=== PATIENT | female | born 1940 | race Caucasian/White ===

== ENCOUNTER 2018-01-07 17:15 | Inpatient (IN) | payer MEDICARE, BC ==
[2018-01-07] MEDS ORDERED: MORPHINE SULFATE 10 MG/ML INJ IV ONE (17:30)
--- NOTE | 2018-01-07 17:32 | ER Document Report ---
ED Fall - General Chief Complaint: Fall Stated Complaint: FALL/ARM INJURY Time Seen by Provider: 01/07/18 17:26 Mode of Arrival: Stretcher Information source: Patient - HPI Patient complains to provider of: Trip and fall Occurred: Just prior to arrival Where: Outdoors Context: Tripped Associated symptoms: None Location of injury/pain: Elbow, Face, Hand, Head Quality of pain: Achy Severity: Severe Pain Level: 5 Notes: Patient is a 77-year-old female brought to the by EMS after trip and fall while she was trying to get into her vehicle, her states he was getting into the local intermodal truck driver side while patient was getting into the passenger side and then when she did not get and he walked around to find her on the ground, patient denies any symptoms prior to the fall, she is not quite sure how she fell but she denies any syncope or loss of consciousness, no chest pain, no dizziness or lightheadedness, she does have abrasions and facial ecchymosis as well as the pain to the left elbow and her left thumb appears to be dislocated - Related data Allergies/Adverse Reactions: belladonna alkaloids Allergy (Verified 01/07/18 17:34) carbinoxamine [From Rondec] Allergy (Verified 01/07/18 17:34) morphine Allergy (Verified 01/07/18 17:34) Penicillins Allergy (Verified 01/07/18 17:34) pseudoephedrine [From Rondec] Allergy (Verified 01/07/18 17:34) Past Medical History - General Information source: Patient - Social History Smoking Status: Never Smoker Family History: Reviewed & Not Pertinent Review of Systems - Review of Systems Constitutional: No symptoms reported EENT: No symptoms reported Cardiovascular: No symptoms reported Respiratory: No symptoms reported Gastrointestinal: No symptoms reported Genitourinary: No symptoms reported Female Genitourinary: No symptoms reported Musculoskeletal: See HPI Skin: See HPI Hematologic/Lymphatic: No symptoms reported Neurological/Psychological: No symptoms reported -: Yes All other systems reviewed and negative Physical Exam - Vital signs Interpretation: Normal - General General appearance: Alert In distress: None - HEENT Head: Normocephalic, Abrasions, Ecchymosis, Open wounds, Tenderness, Other - Left periorbital ecchymosis, several abrasions on the left forehead, the left maxilla and the nasal bridge, as well as the upper lip, patient also is a 1.5 cm laceration in the left lateral inferior periorbital area, extraocular motions are intact, no hyphema or other signs of orbital injury Eyes: Normal Conjunctiva: Normal Extraocular movements intact: Yes Eyelashes: Normal Pupils: PERRL Ears: Normal External canal: Normal Nasal: Swelling - Ecchymosis, 1 cm abrasion to the nasal bridge Mouth/Lips: Other - Abrasion to upper lip Mucous membranes: Normal Pharynx: Normal Neck: Normal - Respiratory Respiratory status: No respiratory distress Chest status: Nontender Breath sounds: Normal Chest palpation: Normal - Cardiovascular Rhythm: Regular Heart sounds: Normal auscultation Murmur: No - Abdominal Inspection: Normal Distension: No distension Bowel sounds: Normal Tenderness: Nontender Organomegaly: No organomegaly - Back Back: Normal, Nontender - Extremities General lower extremity: Normal inspection, Nontender, Normal color, Normal ROM , Normal temperature, Normal weight bearing. No: Damian's sign Elbow: Tender, Deformity, Limited ROM, Other - 2+ radial pulses, distal sensation and motor is intact Forearm: Normal Wrist: Normal Hand: Other - Thumb deformity with stuck in abducted position, ecchymosis at the base of the thumb - Neurological Neuro grossly intact: Yes Cognition: Normal Orientation: AAOx4 [place] Coma Scale Eye Opening: Spontaneous Laila Coma Scale Verbal: Oriented Laila Coma Scale Motor: Obeys Commands [place] Coma Scale Total: 15 Speech: Normal Motor strength normal: LUE, RUE, LLE, RLE Sensory: Normal - Psychological Associated symptoms: Normal affect, Normal mood - Skin Skin Temperature: Warm Skin Moisture: Dry Skin Color: Normal Course - Re-evaluation Re-evalutation: 01/07/18 18:59 Patient discussed with on-call orthopedics, Dr. Conti who requested a CT scan of the elbow, recommend admit patient for likely surgical repair Patient discussed with Dr. Gonzalez who will admit patient for further evaluation and treatment Plan discussed with patient at bedside who is in agreement as well 01/07/18 23:59 Patient did have a left thumb dislocation on examination, imaging did not translate very well to show this, however an intra-articular injection was performed and then was reduced, patient was placed in a long-arm posterior splint as well as a thumb spica splint, facial abrasions were cleaned and bacitracin was placed on them, facial laceration was repaired using sutures, see procedure note, patient admitted to Dr. Gonzalez for further evaluation and treatment, orthopedics consulted as well - Laboratory Result Diagrams: 01/07/18 21:32 01/07/18 21:32 - Diagnostic Test Radiology reviewed: Image reviewed, Reports reviewed Procedures - Immobilization Left Arm Time completed: 20:43 Pre-Proc Neuro Vasc Exam: Normal Immobilizer type: Thumb spica, Short Arm Posterior Performed by: PCT Post-Proc Neuro Vasc Exam: Normal Alignment checked and good: Yes - Joint Reduction/Fracture Care Left Thumb Time completed: 20:42 Consent obtained: Yes Conscious sedation: No Pre-procedure NV exam: Yes Post-procedure NV exam: Yes Post-reduction x-ray: Joint reduced Reduction attempts: 1 Complications: No - Laceration/Wound Repair Left Face Time completed: 20:42 Wound length (cm): 1.5 Wound's Depth, Shape: Linear, Contused tissue Laceration pre-procedure: Sterile PPE donned, Sterile drapes applied, Shur- Clens applied Anesthetic type: 1% Lidocaine w/epi Volume Anesthetic (mLs): 4 Wound explored: Clean Irrigated w/ Saline (mLs): 400 Wound Repaired With: Sutures Suture Size/Type: 5:0, Ethilon Number of Sutures: 3 Layer Closure?: No Post-procedure NV exam normal: Yes Complications: No Discharge - Discharge Clinical Impression: Elbow fracture, left, Facial laceration, Head injury, Thumb dislocation Condition: Stable Disposition: ADMITTED INPATIENT Admitting Provider: Lisa Unit Admitted: Telemetry
[2018-01-07] MEDS ORDERED: HYDROMORPHONE HCL INJ/PF 2 MG/ML AMPULE IV ONE (17:38)
--- NOTE | 2018-01-07 18:19 | RADIOLOGY REPORT (SQ) ---
EXAM DESCRIPTION: CT HEAD WITHOUT COMPLETED DATE/TIME: 01/07/2018 5:54 pm REASON FOR STUDY: injury COMPARISON: None. TECHNIQUE: Axial images acquired through the brain without intravenous contrast. Images reviewed wi th bone, brain and subdural windows. Additional sagittal and coronal reconstructions were generated. Images stored on PACS. All CT scanners at this facility use dose modulation, iterative reconstruction, and/or weight based d osing when appropriate to reduce radiation dose to as low as reasonably achievable (ALARA). [facility]: Dose Right [facility]: CareDose [facility]: Dose Right [facility]: Teradose 4D [facility]: [employer] RADIATION DOSE: CT Rad equipment meets quality standard of care and radiation dose reduction techniq ues were employed. CTDIvol: 53.2 mGy. DLP: 964 mGy-cm. mGy. LIMITATIONS: None. FINDINGS: VENTRICLES: Normal size and contour. CEREBRUM: No masses. No hemorrhage. No midline shift. No evidence for acute infarction. Normal gra y/white matter differentiation. No areas of low density in the white matter. CEREBELLUM: No masses. No hemorrhage. No alteration of density. No evidence for acute infarction. EXTRAAXIAL SPACES: No fluid collections. No masses. ORBITS AND GLOBE: No intra- or extraconal masses. Normal contour of globe without masses. CALVARIUM: No fracture. PARANASAL SINUSES: No fluid or mucosal thickening. SOFT TISSUES: No mass or hematoma. OTHER: No other significant finding. IMPRESSION: NORMAL BRAIN CT WITHOUT CONTRAST. EVIDENCE OF ACUTE STROKE: NO. COMMENT: Quality ID # [id number]: Final reports with documentation of one or more dose reduction techniques (e.g., Automated exposure control, adjustment of the mA and/or kV according to patient size, use of iterative reconstruction technique) TECHNICAL DOCUMENTATION: JOB ID: [id number] [employer]- All Rights Reserved Reading location - IP/workstation name: [email or web address]
--- NOTE | 2018-01-07 18:21 | RADIOLOGY REPORT (SQ) ---
EXAM DESCRIPTION: CT FACIAL AREA WITHOUT COMPLETED DATE/TIME: 01/07/2018 5:54 pm REASON FOR STUDY: fall COMPARISON: None. TECHNIQUE: Noncontrasted images through the facial bones and orbits windowed for bone and soft tissu e. Additional coronal and sagittal reconstructed images reviewed. All images stored on PACS. All CT scanners at this facility use dose modulation, iterative reconstruction, and/or weight based d osing when appropriate to reduce radiation dose to as low as reasonably achievable (ALARA). [facility]: Dose Right [facility]: CareDose [facility]: Dose Right [facility]: Teradose 4D [facility]: [employer] RADIATION DOSE: CT Rad equipment meets quality standard of care and radiation dose reduction techniq ues were employed. CTDIvol: 30.4 mGy. DLP: 513 mGy-cm. mGy. LIMITATIONS: None. FINDINGS: FACIAL BONES: No fracture or bone lesion. ORBITS: Intact. No fracture. Symmetric intact globes and retroorbital soft tissues. PARANASAL SINUSES: Clear. No significant mucosal thickening, mass or fluid. No nasal polyps. Maxill aj sinus outlets are patent. SOFT TISSUES: Soft tissue hematoma overlying the left orbit and extending to the left side of the nos e with soft tissue injury. INFERIOR BRAIN: Limited view. No acute findings. OTHER: No other significant finding. IMPRESSION: SOFT TISSUE INJURY OVERLYING THE LEFT ORBIT AND INVOLVING THE LEFT SIDE OF THE NOSE. NO FRACTURE OR OTHER ACUTE FINDINGS. TECHNICAL DOCUMENTATION: JOB ID: [id number] Quality ID # [id number]: Final reports with documentation of one or more dose reduction techniques (e.g., Au tomated exposure control, adjustment of the mA and/or kV according to patient size, use of iterative reconstruction technique) 2010 [employer]- All Rights Reserved Reading location - IP/workstation name: [email or web address]
--- NOTE | 2018-01-07 18:45 | RADIOLOGY REPORT (SQ) ---
EXAM DESCRIPTION: ELBOW LEFT AP/LATERAL COMPLETED DATE/TIME: 01/07/2018 6:05 pm REASON FOR STUDY: fall COMPARISON: None. NUMBER OF VIEWS: Two views. TECHNIQUE: AP and lateral radiographic images acquired of the left elbow. LIMITATIONS: Limited positioning. FINDINGS: MINERALIZATION: Normal. BONES: Displaced fracture of the distal humerus. Fracture of the radial head. JOINT: No effusion. SOFT TISSUES: No soft tissue swelling. No foreign body. OTHER: No other significant finding. IMPRESSION: DISPLACED FRACTURE OF THE DISTAL HUMERUS. FRACTURE OF THE RADIAL HEAD. TECHNICAL DOCUMENTATION: JOB ID: [id number] [employer]- All Rights Reserved Reading location - IP/workstation name: [email or web address] [id number]
--- NOTE | 2018-01-07 18:46 | RADIOLOGY REPORT (SQ) ---
EXAM DESCRIPTION: HAND LEFT 3 VIEWS COMPLETED DATE/TIME: 01/07/2018 6:05 pm REASON FOR STUDY: fall COMPARISON: None. EXAM PARAMETERS: NUMBER OF VIEWS: Three views. TECHNIQUE: AP, lateral and oblique radiographic images acquired of the left hand. LIMITATIONS: None. FINDINGS: MINERALIZATION: Normal. BONES: No acute fracture or dislocation. Degenerative changes in multiple interphalangeal joints wit h sclerosis and osteophytes. No worrisome bone lesions. JOINTS: No effusions. SOFT TISSUES: No soft tissue swelling. No foreign body. OTHER: No other significant finding. IMPRESSION: DEGENERATIVE CHANGES. NO RADIOGRAPHIC EVIDENCE OF ACUTE INJURY. TECHNICAL DOCUMENTATION: JOB ID: [id number] [employer]- All Rights Reserved Reading location - IP/workstation name: [email or web address]
[2018-01-07] MEDS ORDERED: LIDOCAINE 1%/EPINEPHRINE INJ 20 ML VIAL INJ ONE (18:57)
[2018-01-07] MEDS ORDERED: LIDOCAINE 1% INJ (10 MG/ML) 10 ML MDV INJ ONE (18:57)
--- NOTE | 2018-01-07 19:30 | RADIOLOGY REPORT (SQ) ---
EXAM DESCRIPTION: CT LT UPPER EXTREMITY WITHOUT COMPLETED DATE/TIME: 01/07/2018 7:16 pm REASON FOR STUDY: injury COMPARISON: None. TECHNIQUE: Axial imaging performed through the left elbow with reformatted coronal and sagittal imag ing windowed for bone and soft tissues. Images saved to PACS. 3D IMAGING: Were 3D images as MIP, SSD, or volume rendering performed at the work station? No All CT scanners at this facility use dose modulation, iterative reconstruction, and/or weight based d osing when appropriate to reduce radiation dose to as low as reasonably achievable (ALARA). [facility]: Dose Right [facility]: CareDose [facility]: Dose Right [facility]: Teradose 4D [facility]: [employer] LIMITATIONS: None. RADIATION DOSE: CT Rad equipment meets quality standard of care and radiation dose reduction techniq ues were employed. CTDIvol: 2.6 mGy. DLP: 58 mGy-cm. mGy. FINDINGS: SOFT TISSUES: No obvious swelling or foreign body. BONES: There is a comminuted supracondylar fracture of the distal humerus. There is lateral displace ment of the humerus by about 18 mm. MINERALIZATION: Normal. OTHER: No other significant finding. IMPRESSION: Supracondylar fracture of the distal humerus as described. 3D images can be created nee [employer]. TECHNICAL DOCUMENTATION: JOB ID: [id number] Quality ID # [id number]: Final reports with documentation of one or more dose reduction techniques (e.g., Au tomated exposure control, adjustment of the mA and/or kV according to patient size, use of iterative reconstruction technique) 2010 [employer]- All Rights Reserved Reading location - IP/workstation name: [email or web address]
[2018-01-07] MEDS ORDERED: ONDANSETRON HCL INJ/PF 4 MG/2 ML SDV IV ONE (19:40)
--- NOTE | 2018-01-07 21:50 | RADIOLOGY REPORT (SQ) ---
PROCEDURE: X-RAY OF THE LEFT HAND THREE VIEWS CLINICAL HISTORY: thumb reduction INDICATION: Same as above COMPARISON: 01/07/2018, done at 5:59 PM . TECHNIQUE: The study was done on 01/07/2018 at 8:58 PM Three Views of the left hand were done. FINDINGS: There is no evidence of acute fractures or dislocation involving the bones of the left wrist and hand. The soft tissues are radiographically unremarkable. Extensive degenerative changes are again seen in the interphalangeal joint of the left thumb and the DIP joints of the second, third and fifth digits If the wrist pain persists, repeat films can be done in 7-10 days interval to rule out occult fractures. Alternatively an MRI of the wrist can be obtained. IMPRESSION: There are no acute bony findings involving the left hand Extensive degenerative changes are again seen in the interphalangeal joint of the left thumb and the DIP joints of the second, third and fifth digits
[2018-01-07 21:55] LABS: ANION GAP 15 (5-19); BLOOD UREA NITROGEN 18 mg/dL (7-20); CALCIUM 9.5 mg/dL (8.4-10.2); CARBON DIOXIDE 26 mmol/L (22-30); CHLORIDE 100 mmol/L (98-107); GLUCOSE 175 mg/dL (75-110); POTASSIUM 4.2 mmol/L (3.6-5.0); SODIUM 140.7 mmol/L (137-145)
[2018-01-07 21:58] LABS: HEMATOCRIT 36.6 % (36.0-47.0); HEMOGLOBIN 12.3 g/dL (12.0-15.5); MEAN CORPUSCULAR HEMOGLOBIN 30.2 pg (27.0-33.4); MEAN CORPUSCULAR HGB CONC 33.6 g/dL (32.0-36.0); MEAN CORPUSCULAR VOLUME 90 fl (80-97); PLATELET COUNT 355 10^3/uL (150-450); RED BLOOD COUNT 4.06 10^6/uL (3.72-5.28); RED CELL DISTRIBUTION WIDTH 13.3 % (11.5-14.0); WHITE BLOOD COUNT 19.6 10^3/uL (4.0-10.5)
[2018-01-07 21:59] LABS: INTERNATIONAL RATION (INR) 0.91; PROTHROMBIN TIME 12.7 SEC (11.4-15.4)
[2018-01-07 22:00] LABS: PARTIAL THROMBOPLASTIN TIME 25.5 SEC (23.5-35.8)
[2018-01-07 22:16] LABS: ABSOLUTE LYMPHOCYTES# (MANUAL) 1.6 10^3/uL (0.5-4.7); ABSOLUTE MONOCYTES # (MANUAL) 0.4 10^3/uL (0.1-1.4); ABSOLUTE NEUTROPHILS# (MANUAL) 17.6 10^3/uL (1.7-8.2); BAND NEUTROPHILS % (MANUAL) 1 % (3-5); BASOPHILS % (MANUAL) 0 % (0-2); EOSINOPHILS % (MANUAL) 0 % (0-6); LYMPHOCYTES % (MANUAL) 8 % (13-45); MONOCYTES % (MANUAL) 2 % (3-13); SEGMENTED NEUTROPHILS % (MAN) 89 % (42-78); TOTAL CELLS COUNTED 100
[2018-01-07 22:23] LABS: POIKILOCYTOSIS SLIGHT
[2018-01-07 22:24] LABS: OVALOCYTES SLIGHT; PLATELET COMMENT ADEQUATE
[2018-01-08] MEDS ORDERED: GLUCAGON,HUMAN RECOMB 1 MG INJ SUBCUT PRN (01:20)
[2018-01-08] MEDS ORDERED: DEXTROSE 40% GEL 15 GM TUBE PO PRN ×3 (01:20→01:31)
[2018-01-08] MEDS ORDERED: DEXTROSE 50%-WATER 25 GM/50 ML DISP.SYRIN IV PRN ×2 (01:20)
[2018-01-08] MEDS ORDERED: HYDROMORPHONE HCL INJ/PF 2 MG/ML AMPULE IV PRN (01:28)
[2018-01-08] MEDS ORDERED: DEXTROSE 50%-WATER SYRINGE 12.5 GM/25 ML DOSE IV PRN (01:31)
[2018-01-08] MEDS ORDERED: DEXTROSE 40% GEL 15 GM TUBE X 2 PO PRN (01:31)
[2018-01-08] MEDS ORDERED: GLUCAGON,HUMAN RECOMB 1 MG INJ IM PRN (01:31)
[2018-01-08] MEDS ORDERED: DEXTROSE 50%-WATER SYRINGE 25 GM/50 ML DOSE IV PRN (01:31)
[2018-01-08] MEDS: ONDANSETRON HCL INJ/PF 4 MG/2 ML SDV IV PRN ×2 (03:45→09:14)
[2018-01-08 07:40] LABS: ABSOLUTE BASOPHILS # (AUTO) 0.1 10^3/uL (0.0-0.2); ABSOLUTE LYMPHOCYTES (AUTO) 1.9 10^3/uL (0.5-4.7); ABSOLUTE NEUT (AUTO) 10.8 10^3/uL (1.7-8.2); BASOPHILS % (AUTO) 0.7 % (0-2); HEMATOCRIT 35.8 % (36.0-47.0); HEMOGLOBIN 12.1 g/dL (12.0-15.5); LYMPHOCYTES % (AUTO) 13.8 % (13-45); MEAN CORPUSCULAR HEMOGLOBIN 30.2 pg (27.0-33.4); MEAN CORPUSCULAR HGB CONC 33.6 g/dL (32.0-36.0); MEAN CORPUSCULAR VOLUME 90 fl (80-97); MONOCYTES % (AUTO) 7.2 % (3-13); PLATELET COUNT 352 10^3/uL (150-450); RED CELL DISTRIBUTION WIDTH 13.3 % (11.5-14.0); SEGMENTED NEUTROPHILS % (AUTO) 78.3 % (42-78); TOTAL CELLS COUNTED % (AUTO) 100 %; WHITE BLOOD COUNT 13.9 10^3/uL (4.0-10.5)
--- NOTE | 2018-01-08 07:53 | EKG REPORT ---
SEVERITY:- ABNORMAL ECG - SINUS TACHYCARDIA LEFT AXIS DEVIATION NONSPECIFIC ST-T CHANGES- INFERIOR LEADS : Confirmed by: Olu Maria MD 08-Jan-2018 07:53:05
--- NOTE | 2018-01-08 08:49 | PDOC H&P ---
History of Present Illness Admission Date/PCP: 01/07/18 19:52 JIM JACOBYAnne Marie Patient complains of: Fall and left elbow pain History of Present Illness: JERAMY LOPEZ is a 77 year old female patient known to my practice who was brought to the ED by EMS due to incidental fall while in the parking lot of a local restaurant and attempting to get in her vehicle passenger front seat. Patient claimed that she suddenly found her self on the floor after delivering her oxygen tank to him. She denied any preceding chest pain, palpitation , dizziness or loss of consciousness. She denied headache. Her initial evaluation in the ED revealed significant bilateral periorbital soft tissue injury with ecchymosis, left more than right and left elbow deformity. Her radiographic evaluation revealed displaced left supracondylar fracture of distal humerus as well as periorbital soft tissue injury without acute facial fracture. She was advised hospitalization for further evaluation and management with orthopedic surgical intervention. Her morbidities include Diabetes mellitus type 2, hypertension, hyperlipidemia, and Osteoarthritis. Past Medical History Cardiac Medical History: Reports: Hyperlipidema, Hypertension Endocrine Medical History: Reports: Diabetes Mellitus Type 2 Musculoskeltal Medical History: Reports: Arthritis Past Surgical History Past Surgical History: Reports: Knee Replacement Social History Smoking Status: Never Smoker Family History Family History: Reviewed & Not Pertinent Parental Family History Reviewed: Yes Children Family History Reviewed: Yes Sibling(s) Family History Reviewed.: Yes Medication/Allergy Home Medications: Atorvastatin Calcium [Lipitor 20 mg Tablet] 20 mg PO QHS 01/07/18 Lisinopril [Prinivil 40 mg Tablet] 40 mg PO DAILY 01/07/18 Metformin HCl [Metformin HCl ER] 1,000 mg PO QAM 01/07/18 Metformin HCl [Metformin HCl ER] 500 mg PO QPM 01/07/18 Tolterodine Tartrate [Tolterodine Tartrate ER] 4 mg PO DAILY 01/07/18 Allergies/Adverse Reactions: belladonna alkaloids Allergy (Verified 01/07/18 17:34) carbinoxamine [From Rondec] Allergy (Verified 01/07/18 17:34) morphine Allergy (Verified 01/07/18 17:34) Penicillins Allergy (Verified 01/07/18 17:34) pseudoephedrine [From Rondec] Allergy (Verified 01/07/18 17:34) Review of Systems Constitutional: ABSENT: chills, fever(s), headache(s), weight gain, weight loss Eyes: PRESENT: visual disturbances - correction with glasses Ears: ABSENT: hearing changes Nose, Mouth, and Throat: ABSENT: as per HPI, headache(s), mouth pain, sore throat, vertigo, other Cardiovascular: ABSENT: chest pain, dyspnea on exertion, edema, orthropnea, palpitations Gastrointestinal: ABSENT: abdominal pain, constipation, diarrhea, hematemesis, hematochezia, nausea, vomiting Musculoskeletal: ABSENT: joint swelling Integumentary: ABSENT: rash, wounds Neurological: ABSENT: abnormal gait, abnormal speech, confusion, dizziness, focal weakness, syncope Psychiatric: ABSENT: anxiety, depression, homidical ideation, suicidal ideation Endocrine: ABSENT: cold intolerance, heat intolerance, menstrual abnormalities, polydipsia, polyuria Hematologic/Lymphatic: ABSENT: easy bleeding, easy bruising, lymphadenopathy Allergic/Immunologic: ABSENT: seasonal rhinorrhea Physical Exam Vital Signs: Temp Pulse Resp BP Pulse Ox 97.6 F 128 H 20 154/79 H 96 01/08/18 03:57 01/08/18 03:57 01/08/18 00:37 01/08/18 03:57 01/08/18 03:57 Intake & Output 01/07/18 01/08/18 01/09/18 06:59 06:59 06:59 Intake Total 0 Output Total 200 Balance -200 Weight 69.3 kg General appearance: PRESENT: no acute distress, well-developed, well-nourished Head exam: PRESENT: normocephalic. ABSENT: atraumatic - with bilateral periorbiatl ecchymosis and soft tissue injury and across nose bridge. Eye exam: PRESENT: conjunctiva pink, periorbital swelling - minimal from soft tissue injury, other - left eye lids with difficukty openning. ABSENT: scleral icterus Ear exam: PRESENT: normal external ear exam Mouth exam: PRESENT: moist Neck exam: PRESENT: full ROM. ABSENT: carotid bruit, JVD, lymphadenopathy, thyromegaly Respiratory exam: PRESENT: clear to auscultation cathleen Cardiovascular exam: PRESENT: RRR. ABSENT: diastolic murmur, rubs, systolic murmur Pulses: PRESENT: normal dorsalis pedis pul, +2 pedal pulses bilateral Vascular exam: PRESENT: normal capillary refill. ABSENT: pallor GI/Abdominal exam: PRESENT: normal bowel sounds, soft. ABSENT: distended, guarding, mass, organolmegaly, rebound, tenderness Rectal exam: PRESENT: deferred Extremities exam: PRESENT: tenderness - left elbow region with CAS wrap and external immobilizer. ABSENT: pedal edema Musculoskeletal exam: PRESENT: deformity - left elbow joint, tenderness - left elbow joint Neurological exam: PRESENT: alert, awake, oriented to person, oriented to place , oriented to time, oriented to situation, CN II-XII grossly intact. ABSENT: motor sensory deficit Psychiatric exam: PRESENT: appropriate affect, normal mood. ABSENT: homicidal ideation, suicidal ideation Skin exam: PRESENT: abrasion, other - periorbital ecchymosis left > right, about small laceration injury left upper lip. Results Laboratory Results: 01/08/18 07:08 01/08/18 07:08 01/07/18 01/07/18 01/08/18 21:32 21:32 07:08 WBC 19.6 H 13.9 H RBC 4.06 4.00 Hgb 12.3 12.1 Hct 36.6 35.8 L MCV 90 90 MCH 30.2 30.2 MCHC 33.6 33.6 RDW 13.3 13.3 Plt Count 355 352 Seg Neutrophils % Not Reportable 78.3 H Lymphocytes % Not Reportable 13.8 Monocytes % Not Reportable 7.2 Eosinophils % Not Reportable 0.0 Basophils % Not Reportable 0.7 Absolute Neutrophils Not Reportable 10.8 H Absolute Lymphocytes Not Reportable 1.9 Absolute Monocytes Not Reportable 1.0 Absolute Eosinophils Not Reportable 0.0 Absolute Basophils Not Reportable 0.1 Sodium 140.7 Potassium 4.2 Chloride 100 Carbon Dioxide 26 Anion Gap 15 BUN 18 Creatinine 0.75 Est GFR ( Amer) > 60 Est GFR (Non-Af Amer) > 60 Glucose 175 H Calcium 9.5 01/08/18 07:08 WBC RBC Hgb Hct MCV MCH MCHC RDW Plt Count Seg Neutrophils % Lymphocytes % Monocytes % Eosinophils % Basophils % Absolute Neutrophils Absolute Lymphocytes Absolute Monocytes Absolute Eosinophils Absolute Basophils Sodium Potassium Chloride Carbon Dioxide Anion Gap BUN 17 Creatinine Est GFR ( Amer) Est GFR (Non-Af Amer) Glucose Calcium Impressions: Elbow X-Ray 01/07/18 17:30 IMPRESSION: DISPLACED FRACTURE OF THE DISTAL HUMERUS. FRACTURE OF THE RADIAL HEAD. Facial Bones CT 01/07/18 17:30 IMPRESSION: SOFT TISSUE INJURY OVERLYING THE LEFT ORBIT AND INVOLVING THE LEFT SIDE OF THE NOSE. NO FRACTURE OR OTHER ACUTE FINDINGS. Head CT 01/07/18 17:30 IMPRESSION: NORMAL BRAIN CT WITHOUT CONTRAST. EVIDENCE OF ACUTE STROKE: NO. Upper Extremity CT 01/07/18 18:56 IMPRESSION: Supracondylar fracture of the distal humerus as described. 3D images can be created needed. Hand X-Ray 01/07/18 20:43 IMPRESSION: There are no acute bony findings involving the left hand Extensive degenerative changes are again seen in the interphalangeal joint of the left thumb and the DIP joints of the second, third and fifth digits Assessment & Plan - Diagnosis (1) Fall, accidental Qualifiers: Encounter type: initial encounter Qualified Code(s): W19.XXXA - Unspecified fall, initial encounter Is this a current diagnosis for this admission?: Yes Plan: PT / OT evaluation when she is clinically stable after orthopedic intervention for her left elbow fracture. (2) Elbow fracture, left Qualifiers: Encounter type: initial encounter Fracture type: closed Qualified Code(s) : S42.402A - Unspecified fracture of lower end of left humerus, initial encounter for closed fracture Is this a current diagnosis for this admission?: Yes Plan: Continue external immobilization with pain management. Follow up on orthopedic consultation and recommendation. (3) Periorbital contusion of left eye Qualifiers: Encounter type: initial encounter Qualified Code(s): S05.12XA - Contusion of eyeball and orbital tissues, left eye, initial encounter Is this a current diagnosis for this admission?: Yes Plan: Topical antibiotic application to affected areas. (4) Facial laceration Qualifiers: Encounter type: initial encounter Qualified Code(s): S01.81XA - Laceration without foreign body of other part of head, initial encounter Is this a current diagnosis for this admission?: Yes Plan: Topical antibiotic application to affected areas. (5) HTN (hypertension) Qualifiers: Hypertension type: essential hypertension Qualified Code(s): I10 - Essential (primary) hypertension Is this a current diagnosis for this admission?: Yes Plan: Continue pre-admission medication management. (6) HLD (hyperlipidemia) Qualifiers: Hyperlipidemia type: unspecified Qualified Code(s): E78.5 - Hyperlipidemia , unspecified Is this a current diagnosis for this admission?: Yes Plan: Continue pre-admission medication management. (7) Diabetes mellitus type 2 in nonobese Is this a current diagnosis for this admission?: Yes Plan: Continue pre-admission medication management. (8) Osteoarthritis involving multiple joints on both sides of body Is this a current diagnosis for this admission?: Yes Plan: Continue pre-admission medication management. (9) Urinary incontinence in female Is this a current diagnosis for this admission?: Yes Plan: Continue pre-admission medication management. - Time Time Spent: 50 to 70 Minutes Medications reviewed and adjusted accordingly: Yes Anticipated discharge: Home with Homehealth - Inpatient Certification Based on my medical assessment, after consideration of the patient's comorbidities, presenting symptoms, or acuity I expect that the services needed warrant INPATIENT care.: Yes I certify that my determination is in accordance with my understanding of Medicare's requirements for reasonable and necessary INPATIENT services [42 CFR 412.3e].: Yes Medical Necessity: Need Close Monitoring Due to Risk of Patient Decompensation, Need For IV Fluids, Need For Continuous Telemetry Monitoring, Need for Surgery, Risk of Complication if Not Cared For in Hospital Post Hospital Care: D/C Planning Supervisor Documentation - Plan Summary Plan Summary: See admitting attending physician orders as reflected in the above care plan.
[2018-01-08] MEDS ORDERED: (PENDING PHARMACY ID) (Tolterodine Tartrate [Tolterodine Tartrate Er] 4 MG) PO SCH (10:00)
[2018-01-08 12:23] LABS: ANION GAP 12 (5-19); CALCIUM 9.3 mg/dL (8.4-10.2); CARBON DIOXIDE 27 mmol/L (22-30); CHLORIDE 99 mmol/L (98-107); GLUCOSE 148 mg/dL (75-110); POTASSIUM 4.5 mmol/L (3.6-5.0); SODIUM 137.7 mmol/L (137-145)
[2018-01-08 12:33] LABS: BLOOD UREA NITROGEN 17 mg/dL (7-20)
[2018-01-08] MEDS: ENOXAPARIN SODIUM INJ 40 MG/0.4 ML DISP.SYRIN SUBCUT SCH (12:41)
[2018-01-08] MEDS: TOLTERODINE TARTRATE 1 MG TABLET PO SCH ×2 (12:42→21:13)
[2018-01-08] MEDS: LISINOPRIL 10 MG TABLET PO SCH (12:42)
[2018-01-08] MEDS: LANSOPRAZOLE 30 MG TAB.RAP.DR PO SCH (12:44)
--- NOTE | 2018-01-08 14:29 | PDOC CONSULTATION ---
History of Present Illness Admission Date/PCP: 01/07/18 19:52 JIMISRAEL GO Patient complains of: Left elbow pain History of Present Illness: JERAMY LOPEZ is a 77 year old female who sustained a fall while at [employer] for her interval history. She was walking outside the restaurant when she tripped on the sidewalk falling face forward hitting her head and left arm. Patient was seen at the emergency room demonstrating fractures of her elbow. Patient also sustained dislocation of her thumb MCP joint which was closed reduced and placed in a splint. She states the pain in her thumb is notably improved. She did have numbness and tingling in her thumb mild numbness and tingling in the ring and small finger. States pain is 8/10 with attempted motion. Patient notes history of previous nerve release in her elbow years ago. Past Medical History Cardiac Medical History: Reports: Hyperlipidema, Hypertension Endocrine Medical History: Reports: Diabetes Mellitus Type 2 Musculoskeltal Medical History: Reports: Arthritis Past Surgical History Past Surgical History: Reports: Knee Replacement Social History Smoking Status: Never Smoker Family History Family History: Reviewed & Not Pertinent Parental Family History Reviewed: No Children Family History Reviewed: No Sibling(s) Family History Reviewed.: No Medication/Allergy Home Medications: Atorvastatin Calcium [Lipitor 20 mg Tablet] 20 mg PO QHS 01/07/18 Lisinopril [Prinivil 40 mg Tablet] 40 mg PO DAILY 01/07/18 Metformin HCl [Metformin HCl ER] 1,000 mg PO QAM 01/07/18 Metformin HCl [Metformin HCl ER] 500 mg PO QPM 01/07/18 Tolterodine Tartrate [Tolterodine Tartrate ER] 4 mg PO DAILY 01/07/18 Allergies/Adverse Reactions: belladonna alkaloids Allergy (Verified 01/07/18 17:34) carbinoxamine [From Rondec] Allergy (Verified 01/07/18 17:34) morphine Allergy (Verified 01/07/18 17:34) Penicillins Allergy (Verified 01/07/18 17:34) pseudoephedrine [From Rondec] Allergy (Verified 01/07/18 17:34) Review of Systems Constitutional: ABSENT: chills, fever(s), headache(s), weight gain, weight loss Eyes: ABSENT: visual disturbances Ears: ABSENT: hearing changes Cardiovascular: ABSENT: chest pain, dyspnea on exertion, edema, orthropnea, palpitations Respiratory: ABSENT: cough, hemoptysis Gastrointestinal: ABSENT: abdominal pain, constipation, diarrhea, hematemesis, hematochezia, nausea, vomiting Genitourinary: ABSENT: dysuria, hematuria Musculoskeletal: PRESENT: as per HPI Integumentary: ABSENT: rash, wounds Neurological: ABSENT: abnormal gait, abnormal speech, confusion, dizziness, focal weakness, syncope Psychiatric: ABSENT: anxiety, depression, homidical ideation, suicidal ideation Endocrine: ABSENT: cold intolerance, heat intolerance, menstrual abnormalities, polydipsia, polyuria Hematologic/Lymphatic: ABSENT: easy bleeding, easy bruising, lymphadenopathy Physical Exam Vital Signs: Temp Pulse Resp BP Pulse Ox 98.2 F 123 H 16 126/84 H 95 01/08/18 07:27 01/08/18 07:27 01/08/18 07:27 01/08/18 07:27 01/08/18 07:27 Intake & Output 01/07/18 01/08/18 01/09/18 06:59 06:59 06:59 Intake Total 0 Output Total 200 Balance -200 Weight 69.3 kg General appearance: PRESENT: no acute distress, well-developed, well-nourished Head exam: PRESENT: normocephalic Eye exam: PRESENT: conjunctiva pink, EOMI, PERRLA, other - Ecchymosis throughout the left orbit and side of the face with notable swelling.. ABSENT: scleral icterus Ear exam: PRESENT: normal external ear exam Mouth exam: PRESENT: moist, tongue midline Teeth exam: PRESENT: other - Chipped tooth Neck exam: PRESENT: full ROM. ABSENT: carotid bruit, JVD, lymphadenopathy, thyromegaly Cardiovascular exam: PRESENT: RRR. ABSENT: diastolic murmur, rubs, systolic murmur Pulses: PRESENT: normal dorsalis pedis pul, +2 pedal pulses bilateral Vascular exam: PRESENT: normal capillary refill GI/Abdominal exam: PRESENT: normal bowel sounds, soft. ABSENT: distended, guarding, mass, organolmegaly, rebound, tenderness Rectal exam: PRESENT: deferred Musculoskeletal exam: PRESENT: other - Left upper extremity: Splint intact. Intact flexion/extension of the IP and MP joints. Hypoesthesia on the ring and small finger. Cap refill less than 2 seconds. No pain with passive stretch. Compartments soft and compressible no sign of compartment syndrome. Neurological exam: PRESENT: alert, awake, oriented to person, oriented to place , oriented to time, oriented to situation, CN II-XII grossly intact. ABSENT: motor sensory deficit Psychiatric exam: PRESENT: appropriate affect, normal mood. ABSENT: homicidal ideation, suicidal ideation Skin exam: PRESENT: dry, intact, warm. ABSENT: cyanosis, rash Results Laboratory Results: 01/08/18 07:08 01/08/18 07:08 01/07/18 01/07/18 01/08/18 21:32 21:32 07:08 WBC 19.6 H 13.9 H RBC 4.06 4.00 Hgb 12.3 12.1 Hct 36.6 35.8 L MCV 90 90 MCH 30.2 30.2 MCHC 33.6 33.6 RDW 13.3 13.3 Plt Count 355 352 Seg Neutrophils % Not Reportable 78.3 H Lymphocytes % Not Reportable 13.8 Monocytes % Not Reportable 7.2 Eosinophils % Not Reportable 0.0 Basophils % Not Reportable 0.7 Absolute Neutrophils Not Reportable 10.8 H Absolute Lymphocytes Not Reportable 1.9 Absolute Monocytes Not Reportable 1.0 Absolute Eosinophils Not Reportable 0.0 Absolute Basophils Not Reportable 0.1 Sodium 140.7 Potassium 4.2 Chloride 100 Carbon Dioxide 26 Anion Gap 15 BUN 18 Creatinine 0.75 Est GFR ( Amer) > 60 Est GFR (Non-Af Amer) > 60 Glucose 175 H Calcium 9.5 01/08/18 01/08/18 07:08 07:08 WBC RBC Hgb Hct MCV MCH MCHC RDW Plt Count Seg Neutrophils % Lymphocytes % Monocytes % Eosinophils % Basophils % Absolute Neutrophils Absolute Lymphocytes Absolute Monocytes Absolute Eosinophils Absolute Basophils Sodium 137.7 Potassium 4.5 Chloride 99 Carbon Dioxide 27 Anion Gap 12 BUN 17 17 Creatinine 0.80 Est GFR ( Amer) > 60 Est GFR (Non-Af Amer) > 60 Glucose 148 H Calcium 9.3 Impressions: Elbow X-Ray 01/07/18 17:30 IMPRESSION: DISPLACED FRACTURE OF THE DISTAL HUMERUS. FRACTURE OF THE RADIAL HEAD. Facial Bones CT 01/07/18 17:30 IMPRESSION: SOFT TISSUE INJURY OVERLYING THE LEFT ORBIT AND INVOLVING THE LEFT SIDE OF THE NOSE. NO FRACTURE OR OTHER ACUTE FINDINGS. Head CT 01/07/18 17:30 IMPRESSION: NORMAL BRAIN CT WITHOUT CONTRAST. EVIDENCE OF ACUTE STROKE: NO. Upper Extremity CT 01/07/18 18:56 IMPRESSION: Supracondylar fracture of the distal humerus as described. 3D images can be created needed. Hand X-Ray 01/07/18 20:43 IMPRESSION: There are no acute bony findings involving the left hand Extensive degenerative changes are again seen in the interphalangeal joint of the left thumb and the DIP joints of the second, third and fifth digits Status: Image reviewed by me - I have reviewed patient's radiographs which demonstrate supracondylar distal humerus fracture no evidence of intra- articular extension. Also evidence of thumb MCP joint dislocation with adequate reduction on secondary films. Assessment & Plan - Diagnosis (1) Closed fracture of left distal humerus Qualifiers: Encounter type: initial encounter Is this a current diagnosis for this admission?: Yes Plan: Patient has sustained a supracondylar left distal humerus fracture there is not apparent intra-articular extension on radiographs. Given the amount of displacement and severity I feel patient will require operative intervention. She is at high risk for postoperative ulnar nerve symptoms given her previous cubital tunnel release at this point I have recommended open reduction to fixation left distal humerus. Risks and benefits have been explained risks including neurovascular wrist, postoperative pain, postoperative stiffness, posttraumatic arthritis, hardware failure, decreased range of motion. Patient and have verbalized understanding consented for the procedure.
--- NOTE | 2018-01-08 15:13 | Physician Advisory Note ---
Physician Advisor ProgressNote .: Pursuant to the plan for [facility], I have reviewed the medical record for this patient. Physician Advisor Statement: 77yo w/underlying DM/HTN/HLD/OA/ur incont came in w/elbow fx after trip/fall. Needing surgical repair. Very tachycardic in 120s. In thumb spica after thumb disloc reduced in ED. Per discussion w/nurse Destini this afternoon, pt was initially kept NPO (w/IVF @100) this AM due to potential for surgery today, but now it looks like surgery will be tomorrow, so they are going to try her w/a diet. However, she has had a lot of nausea so far today, needing prn IV Zofran twice already today. Last VS on chart at present are from 07:27, & showed continued HR 120s. Per nurse, her HR was 99 at 12N, & is running 126 currently on the monitor. (She will try to get the 12N VS entered into [employer].) PT/OT are consulted to see pt after elbow is stabilized w/surgery, but may not safely assess or work w/her until then. Ortho has now documented that pt has high risk for post-op ulnar nerve sx due to prior CTR. *Status: Medicare pt. Having to stay a 2nd MN due to a logistical delay in surgery does not qualify her for Inpt status. Needing elbow surgery, whether today or tomorrow, does not qualify her for INpt status. Persistent tachycardia on day 2 despite IVF, if attending finds it CONCERNING ( not incidental), is a reason for INpt status. Frequent need for PRN IV Zofran (if pt continues to need it; not just 2 doses) can be a reason for Inpt status. Thanks! CK
[2018-01-08] MEDS: ATORVASTATIN CALCIUM 20 MG TABLET PO SCH (21:13)
[2018-01-09] MEDS: NORMAL SALINE 1000 ML 1,000 ML IV PRN ×3 (03:00→21:57)
[2018-01-09] MEDS: LANSOPRAZOLE 30 MG TAB.RAP.DR PO SCH (05:28)
[2018-01-09 05:48] LABS: ABSOLUTE BASOPHILS # (AUTO) 0.1 10^3/uL (0.0-0.2); ABSOLUTE EOSINOPHILS # (AUTO) 0.1 10^3/uL (0.0-0.6); ABSOLUTE LYMPHOCYTES (AUTO) 2.7 10^3/uL (0.5-4.7); ABSOLUTE MONOCYTES (AUTO) 1.4 10^3/uL (0.1-1.4); ABSOLUTE NEUT (AUTO) 8.5 10^3/uL (1.7-8.2); BASOPHILS % (AUTO) 0.5 % (0-2); EOSINOPHILS % (AUTO) 0.8 % (0-6); HEMATOCRIT 36.3 % (36.0-47.0); MEAN CORPUSCULAR HEMOGLOBIN 29.8 pg (27.0-33.4); MEAN CORPUSCULAR HGB CONC 33.1 g/dL (32.0-36.0); MEAN CORPUSCULAR VOLUME 90 fl (80-97); MONOCYTES % (AUTO) 11.4 % (3-13); PLATELET COUNT 339 10^3/uL (150-450); RED BLOOD COUNT 4.03 10^6/uL (3.72-5.28); RED CELL DISTRIBUTION WIDTH 13.1 % (11.5-14.0); SEGMENTED NEUTROPHILS % (AUTO) 66.3 % (42-78); TOTAL CELLS COUNTED % (AUTO) 100 %; WHITE BLOOD COUNT 12.7 10^3/uL (4.0-10.5)
[2018-01-09 06:14] LABS: ANION GAP 11 (5-19); BLOOD UREA NITROGEN 12 mg/dL (7-20); CARBON DIOXIDE 26 mmol/L (22-30); CHLORIDE 103 mmol/L (98-107); GLUCOSE 148 mg/dL (75-110); POTASSIUM 4.5 mmol/L (3.6-5.0); SODIUM 140.2 mmol/L (137-145)
--- NOTE | 2018-01-09 08:42 | PDOC PROGRESS REPORT ---
Subjective Progress Note for:: 01/09/18 Subjective:: Patient reported cotrol of her pain. Facial swelling and ecchymosis resolving ad able to open left eye this morning. Nausea remain a concern. She is scheduled for surgical intervention today. She denied chest pain or difficulty with breathing. No reported fever or chills. Reason For Visit: FRACTURE OF LEFT ELBOW/FACIAL LACERATION Physical Exam Vital Signs: Temp Pulse Resp BP Pulse Ox 98.5 F 113 H 18 152/71 H 95 01/09/18 08:11 01/09/18 08:11 01/09/18 08:11 01/09/18 08:11 01/09/18 08:11 Intake & Output 01/08/18 01/09/18 01/10/18 06:59 06:59 06:59 Intake Total 0 236 Output Total 200 800 Balance -200 -564 Weight 69.3 kg 69.1 kg General appearance: PRESENT: no acute distress, well-developed, well-nourished Head exam: PRESENT: normocephalic. ABSENT: atraumatic - Periorbital facial soft tissue swelling with ecchymosis, left >> right Eye exam: PRESENT: conjunctiva pink - left medial subconjunctival hemorrhage, EOMI, periorbital swelling, PERRLA. ABSENT: scleral icterus Ear exam: PRESENT: normal external ear exam Mouth exam: PRESENT: laceration - upper lip left side, moist Respiratory exam: PRESENT: clear to auscultation cathleen Cardiovascular exam: PRESENT: RRR. ABSENT: diastolic murmur, rubs, systolic murmur Vascular exam: PRESENT: normal capillary refill. ABSENT: pallor GI/Abdominal exam: PRESENT: normal bowel sounds, soft. ABSENT: distended, guarding, mass, organolmegaly, rebound, tenderness Extremities exam: PRESENT: tenderness - reportedaround left elbow region and left thumb and 5th finger. ABSENT: pedal edema Musculoskeletal exam: PRESENT: deformity, tenderness - reportedaround left elbow region and left thumb and 5th finger. External immobilizer and CAS wrap dressing Neurological exam: PRESENT: alert, awake, oriented to person, oriented to place , oriented to time, oriented to situation, CN II-XII grossly intact. ABSENT: motor sensory deficit Psychiatric exam: PRESENT: appropriate affect, normal mood. ABSENT: homicidal ideation, suicidal ideation Skin exam: PRESENT: other - resolving facial soft tissue swelling and ecchymosis Results Laboratory Results: 01/09/18 04:56 01/09/18 04:56 01/08/18 01/09/18 01/09/18 07:08 04:56 04:56 WBC 12.7 H RBC 4.03 Hgb 12.0 Hct 36.3 MCV 90 MCH 29.8 MCHC 33.1 RDW 13.1 Plt Count 339 Seg Neutrophils % 66.3 Lymphocytes % 21.0 Monocytes % 11.4 Eosinophils % 0.8 Basophils % 0.5 Absolute Neutrophils 8.5 H Absolute Lymphocytes 2.7 Absolute Monocytes 1.4 Absolute Eosinophils 0.1 Absolute Basophils 0.1 Sodium 137.7 140.2 Potassium 4.5 4.5 Chloride 99 103 Carbon Dioxide 27 26 Anion Gap 12 11 BUN 17 12 Creatinine 0.80 0.72 Est GFR ( Amer) > 60 > 60 Est GFR (Non-Af Amer) > 60 > 60 Glucose 148 H 148 H Calcium 9.3 9.0 Impressions: Elbow X-Ray 01/07/18 17:30 IMPRESSION: DISPLACED FRACTURE OF THE DISTAL HUMERUS. FRACTURE OF THE RADIAL HEAD. Facial Bones CT 01/07/18 17:30 IMPRESSION: SOFT TISSUE INJURY OVERLYING THE LEFT ORBIT AND INVOLVING THE LEFT SIDE OF THE NOSE. NO FRACTURE OR OTHER ACUTE FINDINGS. Head CT 01/07/18 17:30 IMPRESSION: NORMAL BRAIN CT WITHOUT CONTRAST. EVIDENCE OF ACUTE STROKE: NO. Upper Extremity CT 01/07/18 18:56 IMPRESSION: Supracondylar fracture of the distal humerus as described. 3D images can be created needed. Hand X-Ray 01/07/18 20:43 IMPRESSION: There are no acute bony findings involving the left hand Extensive degenerative changes are again seen in the interphalangeal joint of the left thumb and the DIP joints of the second, third and fifth digits Assessment & Plan - Diagnosis (1) Fall, accidental Qualifiers: Encounter type: initial encounter Qualified Code(s): W19.XXXA - Unspecified fall, initial encounter Is this a current diagnosis for this admission?: Yes (2) Elbow fracture, left Qualifiers: Encounter type: initial encounter Fracture type: closed Qualified Code(s) : S42.402A - Unspecified fracture of lower end of left humerus, initial encounter for closed fracture Is this a current diagnosis for this admission?: Yes (3) Periorbital contusion of left eye Qualifiers: Encounter type: initial encounter Qualified Code(s): S05.12XA - Contusion of eyeball and orbital tissues, left eye, initial encounter Is this a current diagnosis for this admission?: Yes (4) Facial laceration Qualifiers: Encounter type: initial encounter Qualified Code(s): S01.81XA - Laceration without foreign body of other part of head, initial encounter Is this a current diagnosis for this admission?: Yes (5) HTN (hypertension) Qualifiers: Hypertension type: essential hypertension Qualified Code(s): I10 - Essential (primary) hypertension Is this a current diagnosis for this admission?: Yes (6) HLD (hyperlipidemia) Qualifiers: Hyperlipidemia type: unspecified Qualified Code(s): E78.5 - Hyperlipidemia , unspecified Is this a current diagnosis for this admission?: Yes (7) Diabetes mellitus type 2 in nonobese Is this a current diagnosis for this admission?: Yes (8) Osteoarthritis involving multiple joints on both sides of body Is this a current diagnosis for this admission?: Yes (9) Urinary incontinence in female Is this a current diagnosis for this admission?: Yes - Time Time Spent with patient: 25-34 minutes Medications reviewed and adjusted accordingly: Yes Anticipated discharge: Home with Homehealth Within: Other - Inpatient Certification Based on my medical assessment, after consideration of the patient's comorbidities, presenting symptoms, or acuity I expect that the services needed warrant INPATIENT care.: Yes I certify that my determination is in accordance with my understanding of Medicare's requirements for reasonable and necessary INPATIENT services [42 CFR 412.3e].: Yes Medical Necessity: Need Close Monitoring Due to Risk of Patient Decompensation, Need For IV Fluids, Need for Pain Control, Need for Surgery 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
[2018-01-09] MEDS: LISINOPRIL 10 MG TABLET PO SCH (09:08)
[2018-01-09] MEDS: ONDANSETRON HCL INJ/PF 4 MG/2 ML SDV IV PRN ×2 (10:10→22:20)
[2018-01-09] MEDS: TOLTERODINE TARTRATE 1 MG TABLET PO SCH ×2 (11:16→22:19)
[2018-01-09] MEDS: ENOXAPARIN SODIUM INJ 40 MG/0.4 ML DISP.SYRIN SUBCUT SCH (11:16)
[2018-01-09] MEDS ORDERED: HYDROMORPHONE HCL INJ/PF 2 MG/ML AMPULE ONE (15:23)
[2018-01-09] MEDS ORDERED: EPHEDRINE SULFATE INJ 50 MG/1 ML AMPULE ONE (15:23)
[2018-01-09] MEDS ORDERED: FENTANYL CITRATE INJ/PF 100 MCG/2 ML AMPUL ONE (15:23)
[2018-01-09] MEDS ORDERED: ACETAMINOPHEN 1,000 MG/100 ML RTUPB IV ONE (15:23)
[2018-01-09] MEDS ORDERED: PROPOFOL INJ 200 MG/20 ML VIAL IV ONE (15:23)
[2018-01-09] MEDS ORDERED: MIDAZOLAM 2 MG/2 ML INJ ONE (15:23)
[2018-01-09] MEDS ORDERED: ONDANSETRON HCL INJ/PF 4 MG/2 ML SDV ONE (17:14)
[2018-01-09] MEDS ORDERED: PROMETHAZINE HCL INJ 25 MG/1 ML VIAL ONE (17:14)
[2018-01-09] MEDS ORDERED: VANCOMYCIN HCL INJ 1000 MG VIAL ONE (17:26)
[2018-01-09] MEDS ORDERED: PROMETHAZINE HCL INJ 25 MG/1 ML VIAL IV PRN (18:07)
[2018-01-09] MEDS ORDERED: DIPHENHYDRAMINE HCL 50 MG/ML VIAL IV PRN (18:07)
[2018-01-09] MEDS ORDERED: ONDANSETRON HCL INJ/PF 4 MG/2 ML SDV IV PRN (18:07)
[2018-01-09] MEDS ORDERED: MEPERIDINE HCL/PF INJ 25 MG/1 ML DISP.SYRIN IV PRN (18:07)
[2018-01-09] MEDS ORDERED: FENTANYL CITRATE INJ/PF 100 MCG/2 ML AMPUL IV PRN ×3 (18:07)
--- NOTE | 2018-01-09 20:12 | RADIOLOGY REPORT (SQ) ---
EXAM DESCRIPTION: HUMERUS LEFT; NO CHG FLUORO COMPLETED DATE/TIME: 01/09/2018 7:58 pm REASON FOR STUDY: ORIF LT DISTAL HUMERUS COMPARISON: None. FLUOROSCOPY TIME: 0.4 minutes Spot images saved to PACS. TECHNIQUE: Intra-operative images acquired during surgical procedure to evaluate progress. NUMBER OF IMAGES: 3 LIMITATIONS: None. FINDINGS: Fluoroscopy was provided for intraoperative procedure. Please refer to the operative repo rt for further discussion. IMPRESSION: IMAGE(S) OBTAINED DURING PROCEDURE. COMMENT: Quality ID 145: Final reports for procedures using fluoroscopy that document radiation exp osure indices, or exposure time and number of fluorographic images (if radiation exposure indices are not available) Please consult full operative report of the attending physician for description of the procedure. TECHNICAL DOCUMENTATION: JOB ID: [id number] [employer]- All Rights Reserved Reading location - IP/workstation name: [email or web address]
--- NOTE | 2018-01-09 20:12 | RADIOLOGY REPORT (SQ) ---
EXAM DESCRIPTION: HUMERUS LEFT; NO CHG FLUORO COMPLETED DATE/TIME: 01/09/2018 7:58 pm REASON FOR STUDY: ORIF LT DISTAL HUMERUS COMPARISON: None. FLUOROSCOPY TIME: 0.4 minutes Spot images saved to PACS. TECHNIQUE: Intra-operative images acquired during surgical procedure to evaluate progress. NUMBER OF IMAGES: 3 LIMITATIONS: None. FINDINGS: Fluoroscopy was provided for intraoperative procedure. Please refer to the operative repo rt for further discussion. IMPRESSION: IMAGE(S) OBTAINED DURING PROCEDURE. COMMENT: Quality ID 145: Final reports for procedures using fluoroscopy that document radiation exp osure indices, or exposure time and number of fluorographic images (if radiation exposure indices are not available) Please consult full operative report of the attending physician for description of the procedure. TECHNICAL DOCUMENTATION: JOB ID: [id number] [employer]- All Rights Reserved Reading location - IP/workstation name: [email or web address]
[2018-01-09] MEDS ORDERED: RINGERS SOLUTION,LACTATED 1,000 ML IV PRN (20:23)
[2018-01-09] MEDS ORDERED: MAG HYDROX/AL HYDROX/SIMETH SUSP 30 ML UDCUP PO PRN (20:23)
[2018-01-09] MEDS ORDERED: OXYCODONE HCL IR 5 MG TABLET PO PRN ×3 (20:28→21:03)
--- NOTE | 2018-01-09 20:35 | Operative Report ---
Operative Report DATE OF SURGERY: 01/09/18 PREOPERATIVE DIAGNOSIS: Left intercondylar distal humerus fracture POSTOPERATIVE DIAGNOSIS: Same OPERATION: ORIF of left intra-articular distal humerus fracture SURGEON: RODNEY LUNDBERG ANESTHESIA: GA TISSUE REMOVED OR ALTERED: None COMPLICATIONS: None ESTIMATED BLOOD LOSS: 50 mL INTRAOPERATIVE FINDINGS: As above PROCEDURE: Patient was brought to the operating room and successfully given general anesthetic in the supine position patient was placed in a lateral decubitus beanbag was then secured an axillary roll was placed. Once tube was secured head was secured and patient received 1 g of vancomycin. Then the left upper extremity was prepped and draped in a normal sterile surgical fashion. At this point esmarch was used to exsanguinate the extremity and the tourniquet was inflated at 250 mmHg. A midline incision was done right over the posterior over the just distal to it. Electrocautery was used and then dissected the subcutaneous fat exposing the triceps and nerve medially. Dissection of the ulnar nerve was done away from the triceps down to past the elbow to pass to previous cubital tunnel release. This dissection was done with Metzenbaum scissors and carefully dissected the nerve and releasing medially. A was placed around the nerve to retract it medially. I was able to dissect also laterally and find the intermuscular septum where I used a parasternal elevator to release the triceps off of the posterior aspect of the humerus. This allowed me to visualize the fracture. I also was able then to release the triceps medially and reflected triceps completely off and elevated with a Corea. [address] was also used to elevate and allow us to look at the fracture fragments and reduce it and held it by in placing pins. Was happy with the reduction I actually placed the medial plate and secured it in the shaft in the oblong hole. I placed the screw was nonlocking to secure it and then make sure that it was held in place. Screw was then drilled and locking screw was placed on the most distal fragment holding the reduction with a tenaculum clamp and pain. X-rays were shown to show that the fracture was reduced nicely so the pin and tenaculum was removed and then a lateral plate was applied and used the same technique and placing a screw in the oblong hole of the proximal fragment and a locking screw on the distal fragment while the reduction has been held. AP and lateral x-rays show good reduction and acceptable placement of the plates so we then proceeded to filling the remaining screws by placing locking screws in the shaft and the distal fragment. Once I was satisfied with placing all the screws and measuring them appropriately and placing the appropriate screw lengths final images were taken showing the AP and lateral aspect showing acceptable reduction of the fracture.
[2018-01-09] MEDS ORDERED: ENALAPRILAT DIHYDRATE INJ/PF 1.25 MG/1 ML SDV IV PRN (21:29)
[2018-01-09] MEDS: ATORVASTATIN CALCIUM 20 MG TABLET PO SCH (22:19)
[2018-01-10] MEDS: LANSOPRAZOLE 30 MG TAB.RAP.DR PO SCH (05:52)
[2018-01-10 05:59] LABS: HEMATOCRIT 36.4 % (36.0-47.0); HEMOGLOBIN 12.4 g/dL (12.0-15.5); MEAN CORPUSCULAR HEMOGLOBIN 30.3 pg (27.0-33.4); MEAN CORPUSCULAR HGB CONC 34.1 g/dL (32.0-36.0); MEAN CORPUSCULAR VOLUME 89 fl (80-97); PLATELET COUNT 278 10^3/uL (150-450); RED BLOOD COUNT 4.09 10^6/uL (3.72-5.28); RED CELL DISTRIBUTION WIDTH 13.2 % (11.5-14.0); WHITE BLOOD COUNT 13.3 10^3/uL (4.0-10.5)
[2018-01-10 06:26] LABS: ANION GAP 12 (5-19); BLOOD UREA NITROGEN 11 mg/dL (7-20); CALCIUM 8.3 mg/dL (8.4-10.2); CARBON DIOXIDE 23 mmol/L (22-30); CHLORIDE 102 mmol/L (98-107); GLUCOSE 162 mg/dL (75-110); POTASSIUM 4.4 mmol/L (3.6-5.0); SODIUM 136.8 mmol/L (137-145)
[2018-01-10] MEDS: NORMAL SALINE 1000 ML 1,000 ML IV PRN ×2 (07:53→21:26)
--- NOTE | 2018-01-10 08:03 | PDOC PROGRESS REPORT ---
Subjective Progress Note for:: 01/10/18 Subjective:: Post surgical intervention for her left displaced distal humeral fracture. Her blood pressure and heart rate remain elevated. She continue denied pain and refused prescribed hydromorphone due to associated nausea. She expressed fear of getting out of her bed. No difficulty with breathing. No chest pain. No vomiting or abdominal pain. Reason For Visit: STATUS POST ORIF OF LEFT DISTAL HUMERUS FRACTURE Physical Exam Vital Signs: Temp Pulse Resp BP Pulse Ox 97.6 F 130 H 16 152/86 H 95 01/10/18 07:25 01/10/18 07:25 01/10/18 07:25 01/10/18 07:25 01/10/18 07:25 Intake & Output 01/09/18 01/10/18 01/11/18 06:59 06:59 06:59 Intake Total 236 4205 Output Total 800 1560 Balance -564 2645 Weight 69.1 kg 67.6 kg Physical Exam: General appearance: PRESENT: no acute distress, well-developed, well-nourished Head exam: PRESENT: normocephalic. ABSENT: atraumatic - Periorbital facial soft tissue swelling with ecchymosis, left >> right Eye exam: PRESENT: conjunctiva pink - left medial subconjunctival hemorrhage, EOMI, resolving periorbital swelling, PERRLA. ABSENT: pallor, scleral icterus Ear exam: PRESENT: normal external ear exam Mouth exam: PRESENT: laceration - upper lip left side, moist Respiratory exam: PRESENT: clear to auscultation cathleen Cardiovascular exam: PRESENT: RRR. ABSENT: diastolic murmur, rubs, systolic murmur GI/Abdominal exam: PRESENT: normal bowel sounds, soft. ABSENT: distended, guarding, mass, organomegaly, rebound, tenderness Extremities exam: PRESENT: left upper extremity CAS wrap in situ with immobilizer. ABSENT: pedal edema Musculoskeletal exam: PRESENT: External immobilizer and CAS wrap dressing Neurological exam: PRESENT: alert, awake, oriented to person, oriented to place , oriented to time, oriented to situation, CN II-XII grossly intact. ABSENT: motor sensory deficit Psychiatric exam: PRESENT: appropriate affect, normal mood. ABSENT: homicidal ideation, suicidal ideation Skin exam: PRESENT: other - resolving facial soft tissue swelling and ecchymosis Results Laboratory Results: 01/10/18 05:40 01/10/18 05:40 01/10/18 01/10/18 05:40 05:40 WBC 13.3 H RBC 4.09 Hgb 12.4 Hct 36.4 MCV 89 MCH 30.3 MCHC 34.1 RDW 13.2 Plt Count 278 Sodium 136.8 L Potassium 4.4 Chloride 102 Carbon Dioxide 23 Anion Gap 12 BUN 11 Creatinine 0.63 Est GFR ( Amer) > 60 Est GFR (Non-Af Amer) > 60 Glucose 162 H Calcium 8.3 L Impressions: Elbow X-Ray 01/07/18 17:30 IMPRESSION: DISPLACED FRACTURE OF THE DISTAL HUMERUS. FRACTURE OF THE RADIAL HEAD. Facial Bones CT 01/07/18 17:30 IMPRESSION: SOFT TISSUE INJURY OVERLYING THE LEFT ORBIT AND INVOLVING THE LEFT SIDE OF THE NOSE. NO FRACTURE OR OTHER ACUTE FINDINGS. Head CT 01/07/18 17:30 IMPRESSION: NORMAL BRAIN CT WITHOUT CONTRAST. EVIDENCE OF ACUTE STROKE: NO. Upper Extremity CT 01/07/18 18:56 IMPRESSION: Supracondylar fracture of the distal humerus as described. 3D images can be created needed. Hand X-Ray 01/07/18 20:43 IMPRESSION: There are no acute bony findings involving the left hand Extensive degenerative changes are again seen in the interphalangeal joint of the left thumb and the DIP joints of the second, third and fifth digits Fluoroscopy 01/09/18 00:00 IMPRESSION: IMAGE(S) OBTAINED DURING PROCEDURE. Humerus X-Ray 01/09/18 00:00 IMPRESSION: IMAGE(S) OBTAINED DURING PROCEDURE. Assessment & Plan - Diagnosis (1) Fall, accidental Qualifiers: Encounter type: initial encounter Qualified Code(s): W19.XXXA - Unspecified fall, initial encounter Is this a current diagnosis for this admission?: Yes (2) Elbow fracture, left Qualifiers: Encounter type: initial encounter Fracture type: closed Qualified Code(s) : S42.402A - Unspecified fracture of lower end of left humerus, initial encounter for closed fracture Is this a current diagnosis for this admission?: Yes (3) Periorbital contusion of left eye Qualifiers: Encounter type: initial encounter Qualified Code(s): S05.12XA - Contusion of eyeball and orbital tissues, left eye, initial encounter Is this a current diagnosis for this admission?: Yes (4) Facial laceration Qualifiers: Encounter type: initial encounter Qualified Code(s): S01.81XA - Laceration without foreign body of other part of head, initial encounter Is this a current diagnosis for this admission?: Yes (5) HTN (hypertension) Qualifiers: Hypertension type: essential hypertension Qualified Code(s): I10 - Essential (primary) hypertension Is this a current diagnosis for this admission?: Yes (6) HLD (hyperlipidemia) Qualifiers: Hyperlipidemia type: unspecified Qualified Code(s): E78.5 - Hyperlipidemia , unspecified Is this a current diagnosis for this admission?: Yes (7) Diabetes mellitus type 2 in nonobese Is this a current diagnosis for this admission?: Yes (8) Osteoarthritis involving multiple joints on both sides of body Is this a current diagnosis for this admission?: Yes (9) Urinary incontinence in female Is this a current diagnosis for this admission?: Yes - Time Time Spent with patient: 25-34 minutes Medications reviewed and adjusted accordingly: Yes Anticipated discharge: Home with Homehealth Within: Other - Inpatient Certification Based on my medical assessment, after consideration of the patient's comorbidities, presenting symptoms, or acuity I expect that the services needed warrant INPATIENT care.: Yes I certify that my determination is in accordance with my understanding of Medicare's requirements for reasonable and necessary INPATIENT services [42 CFR 412.3e].: Yes Medical Necessity: Need Close Monitoring Due to Risk of Patient Decompensation, Need For IV Fluids, Need For Continuous Telemetry Monitoring, Need for Pain Control, Need for IV Antibiotics, Need for Surgery, Risk of Complication if Not Cared For in Hospital 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 Start on Tylenol 975 mg po tid prn for pain and temp management. Continue IV Vancomycin coverage as per surgical team input. Request PT/OT services. D/C shoe planner to evaluate for discharge home with RECREATION ADVISER services or SNF short term rehabilitation due to limited assistance from elderly spouse at home.
[2018-01-10] MEDS: ONDANSETRON HCL INJ/PF 4 MG/2 ML SDV IV PRN (08:28)
[2018-01-10] MEDS ORDERED: VANCOMYCIN HCL 1,000 MG in DEXTROSE 5%-WATER 250 ML IV ONE (08:30)
[2018-01-10] MEDS: TOLTERODINE TARTRATE 1 MG TABLET PO SCH ×2 (10:25→21:18)
[2018-01-10] MEDS: ACETAMINOPHEN 325 MG TABLET PO PRN (10:26)
[2018-01-10] MEDS: PRENATAL VITAMIN W DHA CAPSULE PO SCH (10:26)
[2018-01-10] MEDS: ENOXAPARIN SODIUM INJ 40 MG/0.4 ML DISP.SYRIN SUBCUT SCH (10:26)
[2018-01-10] MEDS: LISINOPRIL 10 MG TABLET PO SCH (10:26)
[2018-01-10] MEDS: SENNOSIDES/DOCUSATE 8.6-50 MG 1 EACH TABLET PO SCH ×2 (10:26→18:27)
[2018-01-10] MEDS: INSULIN LISPRO 100 UNIT/ML 3 ML VIAL SUBCUT PRN ×3 (13:35→21:26)
--- NOTE | 2018-01-10 19:03 | PDOC PROGRESS REPORT ---
Subjective Progress Note for:: 01/10/18 Subjective:: Pain well controlled. Complains of paresthesias of the ring finger and fifth digit. Reason For Visit: STATUS POST ORIF OF LEFT DISTAL HUMERUS FRACTURE Physical Exam Vital Signs: Temp Pulse Resp BP Pulse Ox 36.6 C 120 H 16 135/61 H 97 01/10/18 15:25 01/10/18 15:25 01/10/18 15:25 01/10/18 15:25 01/10/18 15:25 Intake & Output 01/09/18 01/10/18 01/11/18 06:59 06:59 06:59 Intake Total 236 4205 1715 Output Total 800 1560 1100 Balance -564 2645 615 Weight 69.1 kg 67.6 kg Adult Front & Back Image: 1 - Splint is dry clean and intact. Still in the semi-extended position. Distally she does have intact sensation to light touch on the ulnar nerve distribution despite the paresthesias. Median nerve and radial nerve distribution are intact as well with good capillary refill. Able to extend and flex digits and abduct and adductor digits. Results Laboratory Results: 01/10/18 05:40 01/10/18 05:40 01/10/18 01/10/18 05:40 05:40 WBC 13.3 H RBC 4.09 Hgb 12.4 Hct 36.4 MCV 89 MCH 30.3 MCHC 34.1 RDW 13.2 Plt Count 278 Sodium 136.8 L Potassium 4.4 Chloride 102 Carbon Dioxide 23 Anion Gap 12 BUN 11 Creatinine 0.63 Est GFR ( Amer) > 60 Est GFR (Non-Af Amer) > 60 Glucose 162 H Calcium 8.3 L Impressions: Elbow X-Ray 01/07/18 17:30 IMPRESSION: DISPLACED FRACTURE OF THE DISTAL HUMERUS. FRACTURE OF THE RADIAL HEAD. Facial Bones CT 01/07/18 17:30 IMPRESSION: SOFT TISSUE INJURY OVERLYING THE LEFT ORBIT AND INVOLVING THE LEFT SIDE OF THE NOSE. NO FRACTURE OR OTHER ACUTE FINDINGS. Head CT 01/07/18 17:30 IMPRESSION: NORMAL BRAIN CT WITHOUT CONTRAST. EVIDENCE OF ACUTE STROKE: NO. Upper Extremity CT 01/07/18 18:56 IMPRESSION: Supracondylar fracture of the distal humerus as described. 3D images can be created needed. Hand X-Ray 01/07/18 20:43 IMPRESSION: There are no acute bony findings involving the left hand Extensive degenerative changes are again seen in the interphalangeal joint of the left thumb and the DIP joints of the second, third and fifth digits Fluoroscopy 01/09/18 00:00 IMPRESSION: IMAGE(S) OBTAINED DURING PROCEDURE. Humerus X-Ray 01/09/18 00:00 IMPRESSION: IMAGE(S) OBTAINED DURING PROCEDURE. Assessment & Plan - Diagnosis (1) Closed fracture of left distal humerus Qualifiers: Encounter type: initial encounter Is this a current diagnosis for this admission?: Yes Plan: 77-year-old female postop day 1 from ORIF of left intercondylar humerus fracture. Nonweightbearing keep the splint dry clean and intact. Continue pain control and DVT prophylaxis Patient would benefit [facility].
[2018-01-10] MEDS: ATORVASTATIN CALCIUM 20 MG TABLET PO SCH (21:16)
[2018-01-10] MEDS: CARVEDILOL 3.125 MG TABLET PO SCH (21:17)
[2018-01-11] MEDS: LANSOPRAZOLE 30 MG TAB.RAP.DR PO SCH (05:14)
[2018-01-11 06:04] LABS: HEMATOCRIT 30.7 % (36.0-47.0); HEMOGLOBIN 10.5 g/dL (12.0-15.5); MEAN CORPUSCULAR HEMOGLOBIN 30.3 pg (27.0-33.4); MEAN CORPUSCULAR HGB CONC 34.1 g/dL (32.0-36.0); MEAN CORPUSCULAR VOLUME 89 fl (80-97); PLATELET COUNT 265 10^3/uL (150-450); RED BLOOD COUNT 3.46 10^6/uL (3.72-5.28); RED CELL DISTRIBUTION WIDTH 12.8 % (11.5-14.0)
[2018-01-11] MEDS: ACETAMINOPHEN 325 MG TABLET PO PRN (07:57)
[2018-01-11] MEDS: LISINOPRIL 10 MG TABLET PO SCH (10:36)
[2018-01-11] MEDS: ENOXAPARIN SODIUM INJ 40 MG/0.4 ML DISP.SYRIN SUBCUT SCH (10:36)
[2018-01-11] MEDS: SENNOSIDES/DOCUSATE 8.6-50 MG 1 EACH TABLET PO SCH ×2 (10:36→18:48)
[2018-01-11] MEDS: PRENATAL VITAMIN W DHA CAPSULE PO SCH (10:36)
[2018-01-11] MEDS: TOLTERODINE TARTRATE 1 MG TABLET PO SCH ×2 (10:38→22:07)
[2018-01-11] MEDS: CARVEDILOL 3.125 MG TABLET PO SCH ×2 (10:39→22:07)
[2018-01-11] MEDS: NORMAL SALINE 1000 ML 1,000 ML IV PRN ×2 (11:50→22:15)
[2018-01-11] MEDS: INSULIN LISPRO 100 UNIT/ML 3 ML VIAL SUBCUT PRN ×2 (12:26→22:08)
--- NOTE | 2018-01-11 15:20 | PDOC PROGRESS REPORT ---
Subjective Progress Note for:: 01/11/18 Subjective:: No difficulty with breathing or chest pain. No nausea. vomiting or abdominal pain. Her oral intake has been improving. She is participating in physical therapy. SNF will not offer bed until Sunday as per d/c case planner's note. Reason For Visit: STATUS POST ORIF OF LEFT DISTAL HUMERUS FRACTURE Physical Exam Vital Signs: Temp Pulse Resp BP Pulse Ox 97.1 F 113 H 17 134/69 H 97 01/11/18 12:02 01/11/18 12:02 01/11/18 12:02 01/11/18 12:02 01/11/18 12:02 Intake & Output 01/10/18 01/11/18 01/12/18 06:59 06:59 06:59 Intake Total 4205 2933 1355 Output Total 1560 1700 480 Balance 2645 1233 875 Weight 67.6 kg 66.7 kg Physical Exam: General appearance: PRESENT: no acute distress, well-developed, well-nourished Head exam: PRESENT: normocephalic. ABSENT: atraumatic - Periorbital facial soft tissue swelling with ecchymosis, left >> right Eye exam: PRESENT: improving conjunctiva pink - left medial subconjunctival hemorrhage, EOMI, resolving periorbital swelling, PERRLA. ABSENT: pallor, scleral icterus Ear exam: PRESENT: normal external ear exam Mouth exam: PRESENT: laceration - upper lip left side, moist Respiratory exam: PRESENT: clear to auscultation cathleen Cardiovascular exam: PRESENT: RRR. ABSENT: diastolic murmur, rubs, systolic murmur GI/Abdominal exam: PRESENT: normal bowel sounds, soft. ABSENT: distended, guarding, mass, organomegaly, rebound, tenderness Extremities exam: PRESENT: left upper extremity CAS wrap in situ with immobilizer. ABSENT: pedal edema Musculoskeletal exam: PRESENT: External immobilizer and CAS wrap dressing Neurological exam: PRESENT: alert, awake, oriented to person, oriented to place , oriented to time, oriented to situation, CN II-XII grossly intact. ABSENT: motor sensory deficit Psychiatric exam: PRESENT: appropriate affect, normal mood. ABSENT: homicidal ideation, suicidal ideation Skin exam: PRESENT: other - resolving facial soft tissue swelling and ecchymosis Results Laboratory Results: 01/11/18 05:15 01/10/18 05:40 01/11/18 05:15 WBC 12.0 H RBC 3.46 L Hgb 10.5 L Hct 30.7 L MCV 89 MCH 30.3 MCHC 34.1 RDW 12.8 Plt Count 265 Impressions: Elbow X-Ray 01/07/18 17:30 IMPRESSION: DISPLACED FRACTURE OF THE DISTAL HUMERUS. FRACTURE OF THE RADIAL HEAD. Facial Bones CT 01/07/18 17:30 IMPRESSION: SOFT TISSUE INJURY OVERLYING THE LEFT ORBIT AND INVOLVING THE LEFT SIDE OF THE NOSE. NO FRACTURE OR OTHER ACUTE FINDINGS. Head CT 01/07/18 17:30 IMPRESSION: NORMAL BRAIN CT WITHOUT CONTRAST. EVIDENCE OF ACUTE STROKE: NO. Upper Extremity CT 01/07/18 18:56 IMPRESSION: Supracondylar fracture of the distal humerus as described. 3D images can be created needed. Hand X-Ray 01/07/18 20:43 IMPRESSION: There are no acute bony findings involving the left hand Extensive degenerative changes are again seen in the interphalangeal joint of the left thumb and the DIP joints of the second, third and fifth digits Fluoroscopy 01/09/18 00:00 IMPRESSION: IMAGE(S) OBTAINED DURING PROCEDURE. Humerus X-Ray 01/09/18 00:00 IMPRESSION: IMAGE(S) OBTAINED DURING PROCEDURE. Assessment & Plan - Diagnosis (1) Fall, accidental Qualifiers: Encounter type: initial encounter Qualified Code(s): W19.XXXA - Unspecified fall, initial encounter Is this a current diagnosis for this admission?: Yes (2) Elbow fracture, left Qualifiers: Encounter type: initial encounter Fracture type: closed Qualified Code(s) : S42.402A - Unspecified fracture of lower end of left humerus, initial encounter for closed fracture Is this a current diagnosis for this admission?: Yes (3) Periorbital contusion of left eye Qualifiers: Encounter type: initial encounter Qualified Code(s): S05.12XA - Contusion of eyeball and orbital tissues, left eye, initial encounter Is this a current diagnosis for this admission?: Yes (4) Facial laceration Qualifiers: Encounter type: initial encounter Qualified Code(s): S01.81XA - Laceration without foreign body of other part of head, initial encounter Is this a current diagnosis for this admission?: Yes (5) HTN (hypertension) Qualifiers: Hypertension type: essential hypertension Qualified Code(s): I10 - Essential (primary) hypertension Is this a current diagnosis for this admission?: Yes (6) HLD (hyperlipidemia) Qualifiers: Hyperlipidemia type: unspecified Qualified Code(s): E78.5 - Hyperlipidemia , unspecified Is this a current diagnosis for this admission?: Yes (7) Diabetes mellitus type 2 in nonobese Is this a current diagnosis for this admission?: Yes (8) Osteoarthritis involving multiple joints on both sides of body Is this a current diagnosis for this admission?: Yes (9) Urinary incontinence in female Is this a current diagnosis for this admission?: Yes - Time Time Spent with patient: 25-34 minutes Medications reviewed and adjusted accordingly: Yes Anticipated discharge: SNF Within: Other - Inpatient Certification Based on my medical assessment, after consideration of the patient's comorbidities, presenting symptoms, or acuity I expect that the services needed warrant INPATIENT care.: Yes I certify that my determination is in accordance with my understanding of Medicare's requirements for reasonable and necessary INPATIENT services [42 CFR 412.3e].: Yes Medical Necessity: Need Close Monitoring Due to Risk of Patient Decompensation, Need For Continuous Telemetry Monitoring, Need for Pain Control, Risk of Complication if Not Cared For in Hospital Post Hospital Care: D/C or Transfer Summary - Plan Summary Plan Summary: Continue current medication management. Restart on Metformin therapy for her diabetes mellitus management. Possible transfer to SNF on Sunday. Obtain CBC with diff, BMP in am.
--- NOTE | 2018-01-11 15:30 | PDOC PROGRESS REPORT ---
Subjective Progress Note for:: 01/11/18 Subjective:: Patient is pain well controlled. No issues overnight. Reason For Visit: STATUS POST ORIF OF LEFT DISTAL HUMERUS FRACTURE Physical Exam Vital Signs: Temp Pulse Resp BP Pulse Ox 36.2 C 113 H 17 134/69 H 97 01/11/18 12:02 01/11/18 12:02 01/11/18 12:02 01/11/18 12:02 01/11/18 12:02 Intake & Output 01/10/18 01/11/18 01/12/18 06:59 06:59 06:59 Intake Total 4205 2933 1355 Output Total 1560 1700 480 Balance 2645 1233 875 Weight 67.6 kg 66.7 kg Adult Front & Back Image: 1 - Splint intact and dressing dry clean and intact. Neurovascular exam is unchanged from yesterday with only paresthesias of the ulnar nerve distribution but intact motor. Results Laboratory Results: 01/11/18 05:15 01/10/18 05:40 01/11/18 05:15 WBC 12.0 H RBC 3.46 L Hgb 10.5 L Hct 30.7 L MCV 89 MCH 30.3 MCHC 34.1 RDW 12.8 Plt Count 265 Impressions: Elbow X-Ray 01/07/18 17:30 IMPRESSION: DISPLACED FRACTURE OF THE DISTAL HUMERUS. FRACTURE OF THE RADIAL HEAD. Facial Bones CT 01/07/18 17:30 IMPRESSION: SOFT TISSUE INJURY OVERLYING THE LEFT ORBIT AND INVOLVING THE LEFT SIDE OF THE NOSE. NO FRACTURE OR OTHER ACUTE FINDINGS. Head CT 01/07/18 17:30 IMPRESSION: NORMAL BRAIN CT WITHOUT CONTRAST. EVIDENCE OF ACUTE STROKE: NO. Upper Extremity CT 01/07/18 18:56 IMPRESSION: Supracondylar fracture of the distal humerus as described. 3D images can be created needed. Hand X-Ray 01/07/18 20:43 IMPRESSION: There are no acute bony findings involving the left hand Extensive degenerative changes are again seen in the interphalangeal joint of the left thumb and the DIP joints of the second, third and fifth digits Fluoroscopy 01/09/18 00:00 IMPRESSION: IMAGE(S) OBTAINED DURING PROCEDURE. Humerus X-Ray 01/09/18 00:00 IMPRESSION: IMAGE(S) OBTAINED DURING PROCEDURE. Assessment & Plan - Diagnosis (1) Closed fracture of left distal humerus Qualifiers: Encounter type: initial encounter Is this a current diagnosis for this admission?: Yes - Plan Summary Plan Summary: Patient is 77-year-old female POD #2 from ORIF of left distal humerus fracture. Continue nonweightbearing ice and elevate. Continue physical therapy Continue pain control Awaiting residential facility placement
[2018-01-11] MEDS: ATORVASTATIN CALCIUM 20 MG TABLET PO SCH (22:07)
[2018-01-12 04:30] LABS: ABSOLUTE BASOPHILS # (AUTO) 0.1 10^3/uL (0.0-0.2); ABSOLUTE EOSINOPHILS # (AUTO) 0.2 10^3/uL (0.0-0.6); ABSOLUTE LYMPHOCYTES (AUTO) 2.1 10^3/uL (0.5-4.7); ABSOLUTE MONOCYTES (AUTO) 1.1 10^3/uL (0.1-1.4); ABSOLUTE NEUT (AUTO) 8.2 10^3/uL (1.7-8.2); BASOPHILS % (AUTO) 0.7 % (0-2); EOSINOPHILS % (AUTO) 1.5 % (0-6); HEMATOCRIT 28.6 % (36.0-47.0); HEMOGLOBIN 9.7 g/dL (12.0-15.5); LYMPHOCYTES % (AUTO) 18.2 % (13-45); MEAN CORPUSCULAR HEMOGLOBIN 30.4 pg (27.0-33.4); MEAN CORPUSCULAR HGB CONC 33.9 g/dL (32.0-36.0); MEAN CORPUSCULAR VOLUME 90 fl (80-97); MONOCYTES % (AUTO) 9.4 % (3-13); PLATELET COUNT 297 10^3/uL (150-450); RED BLOOD COUNT 3.18 10^6/uL (3.72-5.28); SEGMENTED NEUTROPHILS % (AUTO) 70.2 % (42-78); TOTAL CELLS COUNTED % (AUTO) 100 %; WHITE BLOOD COUNT 11.7 10^3/uL (4.0-10.5)
[2018-01-12 04:54] LABS: ANION GAP 10 (5-19); BLOOD UREA NITROGEN 10 mg/dL (7-20); CARBON DIOXIDE 23 mmol/L (22-30); CHLORIDE 104 mmol/L (98-107); GLUCOSE 144 mg/dL (75-110); POTASSIUM 3.8 mmol/L (3.6-5.0)
[2018-01-12] MEDS: LANSOPRAZOLE 30 MG TAB.RAP.DR PO SCH (05:56)
[2018-01-12] MEDS: INSULIN LISPRO 100 UNIT/ML 3 ML VIAL SUBCUT PRN ×2 (08:28→17:23)
[2018-01-12] MEDS: CARVEDILOL 3.125 MG TABLET PO SCH ×2 (11:03→21:30)
[2018-01-12] MEDS: TOLTERODINE TARTRATE 1 MG TABLET PO SCH ×2 (11:03→21:30)
[2018-01-12] MEDS: PRENATAL VITAMIN W DHA CAPSULE PO SCH (11:04)
[2018-01-12] MEDS: LISINOPRIL 10 MG TABLET PO SCH (11:04)
[2018-01-12] MEDS: ENOXAPARIN SODIUM INJ 40 MG/0.4 ML DISP.SYRIN SUBCUT SCH (11:04)
[2018-01-12] MEDS: SENNOSIDES/DOCUSATE 8.6-50 MG 1 EACH TABLET PO SCH ×2 (11:04→17:23)
--- NOTE | 2018-01-12 18:01 | PDOC PROGRESS REPORT ---
Subjective Progress Note for:: 01/12/18 Subjective:: Patient seen by the bedside, no new complaints, awaiting disposition Reason For Visit: STATUS POST ORIF OF LEFT DISTAL HUMERUS FRACTURE Physical Exam Vital Signs: Temp Pulse Resp BP Pulse Ox 97.5 F 108 H 18 146/64 H 100 01/12/18 12:19 01/12/18 14:00 01/12/18 12:19 01/12/18 12:19 01/12/18 12:19 Intake & Output 01/11/18 01/12/18 01/13/18 06:59 06:59 06:59 Intake Total 2933 2911 Output Total 1700 1580 Balance 1233 1331 Weight 66.7 kg 74.4 kg General appearance: PRESENT: no acute distress Eye exam: PRESENT: PERRLA Respiratory exam: PRESENT: clear to auscultation cathleen Cardiovascular exam: PRESENT: +S1, +S2 GI/Abdominal exam: PRESENT: soft Neurological exam: PRESENT: alert Results Laboratory Results: 01/12/18 03:34 01/12/18 03:34 01/12/18 01/12/18 03:34 03:34 WBC 11.7 H RBC 3.18 L Hgb 9.7 L Hct 28.6 L MCV 90 MCH 30.4 MCHC 33.9 RDW 13.0 Plt Count 297 Seg Neutrophils % 70.2 Lymphocytes % 18.2 Monocytes % 9.4 Eosinophils % 1.5 Basophils % 0.7 Absolute Neutrophils 8.2 Absolute Lymphocytes 2.1 Absolute Monocytes 1.1 Absolute Eosinophils 0.2 Absolute Basophils 0.1 Sodium 137.0 Potassium 3.8 Chloride 104 Carbon Dioxide 23 Anion Gap 10 BUN 10 Creatinine 0.56 Est GFR ( Amer) > 60 Est GFR (Non-Af Amer) > 60 Glucose 144 H Calcium 8.0 L Impressions: Elbow X-Ray 01/07/18 17:30 IMPRESSION: DISPLACED FRACTURE OF THE DISTAL HUMERUS. FRACTURE OF THE RADIAL HEAD. Facial Bones CT 01/07/18 17:30 IMPRESSION: SOFT TISSUE INJURY OVERLYING THE LEFT ORBIT AND INVOLVING THE LEFT SIDE OF THE NOSE. NO FRACTURE OR OTHER ACUTE FINDINGS. Head CT 01/07/18 17:30 IMPRESSION: NORMAL BRAIN CT WITHOUT CONTRAST. EVIDENCE OF ACUTE STROKE: NO. Upper Extremity CT 01/07/18 18:56 IMPRESSION: Supracondylar fracture of the distal humerus as described. 3D images can be created needed. Hand X-Ray 01/07/18 20:43 IMPRESSION: There are no acute bony findings involving the left hand Extensive degenerative changes are again seen in the interphalangeal joint of the left thumb and the DIP joints of the second, third and fifth digits Fluoroscopy 01/09/18 00:00 IMPRESSION: IMAGE(S) OBTAINED DURING PROCEDURE. Humerus X-Ray 01/09/18 00:00 IMPRESSION: IMAGE(S) OBTAINED DURING PROCEDURE. Assessment & Plan - Diagnosis (1) Elbow fracture, left Qualifiers: Encounter type: initial encounter Fracture type: closed Qualified Code(s) : S42.402A - Unspecified fracture of lower end of left humerus, initial encounter for closed fracture Is this a current diagnosis for this admission?: Yes (2) Diabetes mellitus type 2 in nonobese Is this a current diagnosis for this admission?: Yes (3) Urinary incontinence in female Is this a current diagnosis for this admission?: Yes (4) Closed fracture of left distal humerus Qualifiers: Encounter type: initial encounter Is this a current diagnosis for this admission?: Yes
--- NOTE | 2018-01-12 18:36 | PDOC PROGRESS REPORT ---
Subjective Progress Note for:: 01/12/18 Subjective:: Patient resting comfortably in bed eating dinner. States that the paresthesia is improving. Reason For Visit: STATUS POST ORIF OF LEFT DISTAL HUMERUS FRACTURE Physical Exam Vital Signs: Temp Pulse Resp BP Pulse Ox 36.8 C 105 H 20 134/51 H 100 01/12/18 16:00 01/12/18 16:00 01/12/18 16:00 01/12/18 16:00 01/12/18 16:00 Intake & Output 01/11/18 01/12/18 01/13/18 06:59 06:59 06:59 Intake Total 2933 2911 591 Output Total 1700 1580 600 Balance 1233 1331 -9 Weight 66.7 kg 74.4 kg Adult Front & Back Image: 1 - Splint and dressing is dry clean and intact. Motor is intact and sensation to the ulnar nerve distribution is slightly improved she states from last couple days. Results Laboratory Results: 01/12/18 03:34 01/12/18 03:34 01/12/18 01/12/18 03:34 03:34 WBC 11.7 H RBC 3.18 L Hgb 9.7 L Hct 28.6 L MCV 90 MCH 30.4 MCHC 33.9 RDW 13.0 Plt Count 297 Seg Neutrophils % 70.2 Lymphocytes % 18.2 Monocytes % 9.4 Eosinophils % 1.5 Basophils % 0.7 Absolute Neutrophils 8.2 Absolute Lymphocytes 2.1 Absolute Monocytes 1.1 Absolute Eosinophils 0.2 Absolute Basophils 0.1 Sodium 137.0 Potassium 3.8 Chloride 104 Carbon Dioxide 23 Anion Gap 10 BUN 10 Creatinine 0.56 Est GFR ( Amer) > 60 Est GFR (Non-Af Amer) > 60 Glucose 144 H Calcium 8.0 L Impressions: Elbow X-Ray 01/07/18 17:30 IMPRESSION: DISPLACED FRACTURE OF THE DISTAL HUMERUS. FRACTURE OF THE RADIAL HEAD. Facial Bones CT 01/07/18 17:30 IMPRESSION: SOFT TISSUE INJURY OVERLYING THE LEFT ORBIT AND INVOLVING THE LEFT SIDE OF THE NOSE. NO FRACTURE OR OTHER ACUTE FINDINGS. Head CT 01/07/18 17:30 IMPRESSION: NORMAL BRAIN CT WITHOUT CONTRAST. EVIDENCE OF ACUTE STROKE: NO. Upper Extremity CT 01/07/18 18:56 IMPRESSION: Supracondylar fracture of the distal humerus as described. 3D images can be created needed. Hand X-Ray 01/07/18 20:43 IMPRESSION: There are no acute bony findings involving the left hand Extensive degenerative changes are again seen in the interphalangeal joint of the left thumb and the DIP joints of the second, third and fifth digits Fluoroscopy 01/09/18 00:00 IMPRESSION: IMAGE(S) OBTAINED DURING PROCEDURE. Humerus X-Ray 01/09/18 00:00 IMPRESSION: IMAGE(S) OBTAINED DURING PROCEDURE. Assessment & Plan - Diagnosis (1) Closed fracture of left distal humerus Qualifiers: Encounter type: initial encounter Is this a current diagnosis for this admission?: Yes - Plan Summary Plan Summary: 77-year-old female postop day 3 from ORIF of the left distal humerus fracture. Continue nonweightbearing with the splint to Dry clean and intact.
[2018-01-12] MEDS: ATORVASTATIN CALCIUM 20 MG TABLET PO SCH (21:30)
[2018-01-13] MEDS: LANSOPRAZOLE 30 MG TAB.RAP.DR PO SCH (06:13)
--- NOTE | 2018-01-13 09:26 | PDOC PROGRESS REPORT ---
Subjective Progress Note for:: 01/13/18 Subjective:: No issues overnight. Patient having breakfast bedside. Reason For Visit: STATUS POST ORIF OF LEFT DISTAL HUMERUS FRACTURE Physical Exam Vital Signs: Temp Pulse Resp BP Pulse Ox 36.8 C 94 19 124/48 L 98 01/13/18 03:35 01/13/18 07:00 01/13/18 03:35 01/13/18 03:35 01/13/18 03:35 Intake & Output 01/12/18 01/13/18 01/14/18 06:59 06:59 06:59 Intake Total 2911 911 Output Total 1580 1520 Balance 1331 -609 Weight 74.4 kg 74.2 kg Adult Front & Back Image: 1 - Splint is dry clean and intact. Neurovascular intact distally with a improving paresthesias of the ulnar nerve distribution. Results Laboratory Results: 01/12/18 03:34 01/12/18 03:34 Impressions: Elbow X-Ray 01/07/18 17:30 IMPRESSION: DISPLACED FRACTURE OF THE DISTAL HUMERUS. FRACTURE OF THE RADIAL HEAD. Facial Bones CT 01/07/18 17:30 IMPRESSION: SOFT TISSUE INJURY OVERLYING THE LEFT ORBIT AND INVOLVING THE LEFT SIDE OF THE NOSE. NO FRACTURE OR OTHER ACUTE FINDINGS. Head CT 01/07/18 17:30 IMPRESSION: NORMAL BRAIN CT WITHOUT CONTRAST. EVIDENCE OF ACUTE STROKE: NO. Upper Extremity CT 01/07/18 18:56 IMPRESSION: Supracondylar fracture of the distal humerus as described. 3D images can be created needed. Hand X-Ray 01/07/18 20:43 IMPRESSION: There are no acute bony findings involving the left hand Extensive degenerative changes are again seen in the interphalangeal joint of the left thumb and the DIP joints of the second, third and fifth digits Fluoroscopy 01/09/18 00:00 IMPRESSION: IMAGE(S) OBTAINED DURING PROCEDURE. Humerus X-Ray 01/09/18 00:00 IMPRESSION: IMAGE(S) OBTAINED DURING PROCEDURE. Assessment & Plan - Diagnosis (1) Closed fracture of left distal humerus Qualifiers: Encounter type: initial encounter Is this a current diagnosis for this admission?: Yes - Plan Summary Plan Summary: 77-year-old female status post ORIF of the left distal humerus fracture. Nonweightbearing and pain control. We will keep the splint dry clean and intact until follow-up in 10-14 days from the date of her surgery.
[2018-01-13] MEDS: PRENATAL VITAMIN W DHA CAPSULE PO SCH (10:29)
[2018-01-13] MEDS: LISINOPRIL 10 MG TABLET PO SCH (10:30)
[2018-01-13] MEDS: ENOXAPARIN SODIUM INJ 40 MG/0.4 ML DISP.SYRIN SUBCUT SCH (10:30)
[2018-01-13] MEDS: TOLTERODINE TARTRATE 1 MG TABLET PO SCH ×2 (10:32→21:37)
[2018-01-13] MEDS: CARVEDILOL 3.125 MG TABLET PO SCH ×2 (10:33→21:37)
[2018-01-13] MEDS: SENNOSIDES/DOCUSATE 8.6-50 MG 1 EACH TABLET PO SCH ×2 (10:34→17:46)
[2018-01-13] MEDS: INSULIN LISPRO 100 UNIT/ML 3 ML VIAL SUBCUT PRN ×2 (12:33→21:44)
--- NOTE | 2018-01-13 19:02 | PDOC PROGRESS REPORT ---
Subjective Progress Note for:: 01/13/18 Subjective:: Patient seen by the bedside, no new complaints, awaiting disposition Reason For Visit: STATUS POST ORIF OF LEFT DISTAL HUMERUS FRACTURE Physical Exam Vital Signs: Temp Pulse Resp BP Pulse Ox 98.3 F 103 H 19 124/48 L 98 01/13/18 03:35 01/13/18 14:00 01/13/18 03:35 01/13/18 03:35 01/13/18 03:35 Intake & Output 01/12/18 01/13/18 01/14/18 06:59 06:59 06:59 Intake Total 2911 911 Output Total 1580 1520 Balance 1331 -609 Weight 74.4 kg 74.2 kg General appearance: PRESENT: no acute distress Eye exam: PRESENT: PERRLA Respiratory exam: PRESENT: clear to auscultation cathleen Cardiovascular exam: PRESENT: +S1, +S2 GI/Abdominal exam: PRESENT: soft Neurological exam: PRESENT: alert Results Laboratory Results: 01/12/18 03:34 01/12/18 03:34 Impressions: Elbow X-Ray 01/07/18 17:30 IMPRESSION: DISPLACED FRACTURE OF THE DISTAL HUMERUS. FRACTURE OF THE RADIAL HEAD. Facial Bones CT 01/07/18 17:30 IMPRESSION: SOFT TISSUE INJURY OVERLYING THE LEFT ORBIT AND INVOLVING THE LEFT SIDE OF THE NOSE. NO FRACTURE OR OTHER ACUTE FINDINGS. Head CT 01/07/18 17:30 IMPRESSION: NORMAL BRAIN CT WITHOUT CONTRAST. EVIDENCE OF ACUTE STROKE: NO. Upper Extremity CT 01/07/18 18:56 IMPRESSION: Supracondylar fracture of the distal humerus as described. 3D images can be created needed. Hand X-Ray 01/07/18 20:43 IMPRESSION: There are no acute bony findings involving the left hand Extensive degenerative changes are again seen in the interphalangeal joint of the left thumb and the DIP joints of the second, third and fifth digits Fluoroscopy 01/09/18 00:00 IMPRESSION: IMAGE(S) OBTAINED DURING PROCEDURE. Humerus X-Ray 01/09/18 00:00 IMPRESSION: IMAGE(S) OBTAINED DURING PROCEDURE. Assessment & Plan - Diagnosis (1) Elbow fracture, left Qualifiers: Encounter type: initial encounter Fracture type: closed Qualified Code(s) : S42.402A - Unspecified fracture of lower end of left humerus, initial encounter for closed fracture Is this a current diagnosis for this admission?: Yes (2) Diabetes mellitus type 2 in nonobese Is this a current diagnosis for this admission?: Yes (3) Urinary incontinence in female Is this a current diagnosis for this admission?: Yes (4) Closed fracture of left distal humerus Qualifiers: Encounter type: initial encounter Is this a current diagnosis for this admission?: Yes
[2018-01-13] MEDS: ATORVASTATIN CALCIUM 20 MG TABLET PO SCH (21:38)
[2018-01-14] MEDS: LANSOPRAZOLE 30 MG TAB.RAP.DR PO SCH (05:13)
--- NOTE | 2018-01-14 08:54 | PDOC TRANSFER SUMMARY ---
General - Admit/Disc Date/PCP Admission Date/Primary Care Provider: 01/07/18 19:52 JIM GO Discharge Date: 01/14/18 - Discharge Diagnosis (1) Fall, accidental Is this a current diagnosis for this admission?: Yes (2) Elbow fracture, left Is this a current diagnosis for this admission?: Yes (3) Periorbital contusion of left eye Is this a current diagnosis for this admission?: Yes (4) Facial laceration Is this a current diagnosis for this admission?: Yes (5) HTN (hypertension) Is this a current diagnosis for this admission?: Yes (6) HLD (hyperlipidemia) Is this a current diagnosis for this admission?: Yes (7) Diabetes mellitus type 2 in nonobese Is this a current diagnosis for this admission?: Yes (8) Osteoarthritis involving multiple joints on both sides of body Is this a current diagnosis for this admission?: Yes (9) Urinary incontinence in female Is this a current diagnosis for this admission?: Yes - Additional Information Resuscitation Status: Full Code Prescriptions: Carvedilol [Coreg 3.125 mg Tablet] 3.125 mg PO Q12 #60 tablet Oxycodone HCl [Oxy-Ir 5 mg Tablet] 5 mg PO Q6HP PRN #30 tablet PRN Reason: Vit/Dha [ Multi + Dha Capsule] 1 cap PO DAILY #30 capsule Sennosides/Docusate 8.6-50 mg [Senna Plus Tablet] 1 each PO BID #60 tablet Home Medications: Atorvastatin Calcium [Lipitor 20 mg Tablet] 20 mg PO QHS 01/07/18 Lisinopril [Prinivil 40 mg Tablet] 40 mg PO DAILY 01/07/18 Metformin HCl [Metformin HCl ER] 1,000 mg PO QAM 01/07/18 Metformin HCl [Metformin HCl ER] 500 mg PO QPM 01/07/18 Tolterodine Tartrate [Tolterodine Tartrate ER] 4 mg PO DAILY 01/07/18 Acetaminophen [Tylenol 325 mg Tablet] 975 mg PO TIDP PRN tablet 01/14/18 Carvedilol [Coreg 3.125 mg Tablet] 3.125 mg PO Q12 #60 tablet 01/14/18 Oxycodone HCl [Oxy-Ir 5 mg Tablet] 5 mg PO Q6HP PRN #30 tablet 01/14/18 Vit/Dha [ Multi + Dha Capsule] 1 cap PO DAILY #30 capsule 01/14 Sennosides/Docusate 8.6-50 mg [Senna Plus Tablet] 1 each PO BID #60 tablet 01/14 History of Present Illness Admission Date/PCP: 01/07/18 19:52 JIM GO History of Present Illness: JERAMY LOPEZ is a 77 year old female patient known to my practice who was brought to the ED by EMS due to incidental fall while in the parking lot of a local restaurant and attempting to get in her vehicle passenger front seat. Patient claimed that she suddenly found her self on the floor after delivering her oxygen tank to him. She denied any preceding chest pain, palpitation , dizziness or loss of consciousness. She denied headache. Her initial evaluation in the ED revealed significant bilateral periorbital soft tissue injury with ecchymosis, left more than right and left elbow deformity. Her radiographic evaluation revealed displaced left supracondylar fracture of distal humerus as well as periorbital soft tissue injury without acute facial fracture. She was advised hospitalization for further evaluation and management with orthopedic surgical intervention. Her morbidities include Diabetes mellitus type 2, hypertension, hyperlipidemia, and Osteoarthritis. Hospital Course Hospital Course: Patient was admitted for post fall left supracondylar fracture. She was taken to operating room on 01/09/2018 for ORIF of left intra-articular distal humerus fracture by the orthopod team. Her stay was protracted due to associated nausea with use of IV opiate for pain management. There was associated tachycardia from pain and volume contraction. She was managed with IV anti hypertensive medication and eventual transition to oral medication with addition of Carvedilol for dual benefit. She has been participating in physical and occupational therapy. She is agreeable to short term rehabilitation at [facility]. She will be transferred to the facility today. She will follow up with the orthopedic team and myself as instructed upon discharge today. Physical Exam Vital Signs: Temp Pulse Resp BP Pulse Ox 98.3 F 95 17 115/83 98 01/14/18 00:00 01/14/18 07:00 01/14/18 00:00 01/14/18 00:00 01/14/18 00:00 Intake & Output 01/13/18 01/14/18 01/15/18 06:59 06:59 06:59 Intake Total 911 858 Output Total 1520 1625 Balance -609 -767 Weight 74.2 kg 72.2 kg General appearance: PRESENT: no acute distress, well-developed, well-nourished Head exam: PRESENT: normocephalic. Resolving Periorbital facial soft tissue swelling with ecchymosis, left >> right Eye exam: PRESENT: improving conjunctiva pink - left medial subconjunctival hemorrhage, EOMI, resolving periorbital swelling, PERRLA. ABSENT: pallor, scleral icterus Ear exam: PRESENT: normal external ear exam Mouth exam: PRESENT: laceration - upper lip left side, moist Respiratory exam: PRESENT: clear to auscultation cathleen Cardiovascular exam: PRESENT: RRR. ABSENT: diastolic murmur, rubs, systolic murmur GI/Abdominal exam: PRESENT: normal bowel sounds, soft. ABSENT: distended, guarding, mass, organomegaly, rebound, tenderness Extremities exam: PRESENT: left upper extremity CAS wrap in situ with immobilizer. ABSENT: pedal edema Musculoskeletal exam: PRESENT: External immobilizer and CAS wrap dressing Neurological exam: PRESENT: alert, awake, oriented to person, oriented to place , oriented to time, oriented to situation, CN II-XII grossly intact. ABSENT: motor sensory deficit Psychiatric exam: PRESENT: appropriate affect, normal mood. ABSENT: homicidal ideation, suicidal ideation Skin exam: PRESENT: other - resolving facial soft tissue swelling and ecchymosis Results Laboratory Results: 01/12/18 03:34 01/12/18 03:34 Impressions: Elbow X-Ray 01/07/18 17:30 IMPRESSION: DISPLACED FRACTURE OF THE DISTAL HUMERUS. FRACTURE OF THE RADIAL HEAD. Facial Bones CT 01/07/18 17:30 IMPRESSION: SOFT TISSUE INJURY OVERLYING THE LEFT ORBIT AND INVOLVING THE LEFT SIDE OF THE NOSE. NO FRACTURE OR OTHER ACUTE FINDINGS. Head CT 01/07/18 17:30 IMPRESSION: NORMAL BRAIN CT WITHOUT CONTRAST. EVIDENCE OF ACUTE STROKE: NO. Upper Extremity CT 01/07/18 18:56 IMPRESSION: Supracondylar fracture of the distal humerus as described. 3D images can be created needed. Hand X-Ray 01/07/18 20:43 IMPRESSION: There are no acute bony findings involving the left hand Extensive degenerative changes are again seen in the interphalangeal joint of the left thumb and the DIP joints of the second, third and fifth digits Fluoroscopy 01/09/18 00:00 IMPRESSION: IMAGE(S) OBTAINED DURING PROCEDURE. Humerus X-Ray 01/09/18 00:00 IMPRESSION: IMAGE(S) OBTAINED DURING PROCEDURE. Transfer Plan - Disposition Transfer Plan: Transfer to SNF for short term rehabilitation. - Time Spent with Patient Time spent with patient: Greater than 30 Minutes - Spent in care coordination and post discharge arrangement. Qualifiers - * PATIENT BEING DISCHARGED WITH ANY OF THE FOLLOWING DIAGNOSIS: No Plan Discharge Plan: Transfer to SNF for short term rehabilitation. Follow up with orthopedic team and myself as instructed upon transfer. Time Spent: Greater than 30 Minutes - Spent in care coordination and post discharge arrangement.
[2018-01-14 09:37] VITALS: BP 157/84
[2018-01-14] MEDS: ENOXAPARIN SODIUM INJ 40 MG/0.4 ML DISP.SYRIN SUBCUT SCH (10:19)
[2018-01-14] MEDS: SENNOSIDES/DOCUSATE 8.6-50 MG 1 EACH TABLET PO SCH (10:19)
[2018-01-14] MEDS: LISINOPRIL 10 MG TABLET PO SCH (10:19)
[2018-01-14] MEDS: PRENATAL VITAMIN W DHA CAPSULE PO SCH (10:19)
[2018-01-14] MEDS: CARVEDILOL 3.125 MG TABLET PO SCH (10:19)
[2018-01-14] MEDS: TOLTERODINE TARTRATE 1 MG TABLET PO SCH (10:24)
[2018-01-14] MEDS: INSULIN LISPRO 100 UNIT/ML 3 ML VIAL SUBCUT PRN (10:35)
== END 2018-01-14 16:15 | DRG 494 ==
LOC: ER 17:15 → EH 19:52 → 4S 01-08 00:36
PROVIDERS: ADMIT Internal Medicine Geriatric Medicine; ATTEND Internal Medicine Geriatric Medicine
PROC: 0RSVXZZ Reposition Left Metacarpophalangeal Joint, External Approach (ICD-10-PCS; 2018-01-07)
PROC: 0HQ1XZZ Repair Face Skin, External Approach (ICD-10-PCS; 2018-01-07)
PROC: 0PSG04Z Reposition Left Humeral Shaft with Internal Fixation Device, Open Approach (ICD-10-PCS; principal; 2018-01-09 16:00)
DX: S42.495A Other nondisplaced fracture of lower end of left humerus, initial encounter for closed fracture (principal); S05.12XA Contusion of eyeball and orbital tissues, left eye, initial encounter; S01.81XA Laceration without foreign body of other part of head, initial encounter; S63.115A Dislocation of metacarpophalangeal joint of left thumb, initial encounter; S01.511A Laceration without foreign body of lip, initial encounter; W01.0XXA Fall on same level from slipping, tripping and stumbling without subsequent striking against object, initial encounter; S00.31XA Abrasion of nose, initial encounter; S00.81XA Abrasion of other part of head, initial encounter; Y92.480 Sidewalk as the place of occurrence of the external cause; Y92.511 Restaurant or cafe as the place of occurrence of the external cause; I10 Essential (primary) hypertension; E78.00 Pure hypercholesterolemia, unspecified; E11.9 Type 2 diabetes mellitus without complications; M15.3 Secondary multiple arthritis; R32 Unspecified urinary incontinence; M19.90 Unspecified osteoarthritis, unspecified site; Z96.659 Presence of unspecified artificial knee joint; Z79.899 Other long term (current) drug therapy; Z88.6 Allergy status to analgesic agent; Z88.0 Allergy status to penicillin; Z88.8 Allergy status to other drugs, medicaments and biological substances; Z98.42 Cataract extraction status, left eye; Z98.41 Cataract extraction status, right eye
CPT/HCPCS: 01740; 36415; 70450; 70486; 80048; 82962; 84520; 85025; 85027; 85610; 85730; 93005; 93010; 96374; 99285; C1713; G8978-GP; G8979-GP; G8987-GO; G8988-GO; J0131; J1170; J1650; J1815; J2250; J2405; J2550; J2704; J3010; J3370; J3490; J7030; J7060